=== PATIENT | male | born 1945 | race Two or more races ===

== ENCOUNTER 2020-08-09 13:00 | Outpatient (CLI) | payer MEDICARE, MEDICAID ==
[2020-08-09] MEDS ORDERED: COLLAGENASE 5 GM TUBE UD TP ONE (13:40)
[2020-08-09 14:41] LABS: BASOPHILS % (AUTO) 0.5 % (0.0-2.0); EOSINOPHILS % (AUTO) 2.6 % (0.0-6.0); HEMATOCRIT 41 % (39-51); HEMOGLOBIN 13.5 g/dL (13.5-17.5); LYMPHOCYTES # (AUTO) 1.4 /CMM (0.8-4.8); LYMPHOCYTES % (AUTO) 27.4 % (20.0-44.0); MEAN CORPUSCULAR HGB CONC 33 g/dl (31.0-36.0); MEAN CORPUSCULAR VOLUME 95 fL (80-96); MONOCYTES # (AUTO) 0.5 /CMM (0.1-1.30); MONOCYTES % (AUTO) 9.7 % (2.0-12.0); NEUTROPHILS # (AUTO) 3.1 /CMM (1.8-8.9); NEUTROPHILS % (AUTO) 59.8 % (43.0-81.0); PLATELET COUNT (AUTO) 127 /CMM (150-450); RED BLOOD CELL COUNT(AUTO) 4.28 MIL/uL (4.5-6.0); WHITE BLOOD COUNT (AUTO) 5.2 K/uL (4.3-11.0)
[2020-08-09 14:57] LABS: ALBUMIN 3.8 g/dL (3.4-5.0); CALCIUM, SERUM 9.2 mg/dL (8.5-10.1); CARBON DIOXIDE 29 mmol/L (21-32); CHLORIDE 105 mmol/L (98-107); CREATININE 1.5 mg/dL (0.6-1.3); GLUCOSE 99 mg/dL (74-106); POTASSIUM 4.1 mmol/L (3.5-5.1); SODIUM SERUM 141 mmol/L (136-145); UREA NITROGEN, BLOOD 21 mg/dL (7-18)
== END 2020-08-09 23:59 | disposition home or self-care (01) ==
LOC: WOU 13:00
PROVIDERS: ATTEND Podiatrist Foot & Ankle Surgery
DX: E11.622 Type 2 diabetes mellitus with other skin ulcer (principal); L97.312 Non-pressure chronic ulcer of right ankle with fat layer exposed; L97.321 Non-pressure chronic ulcer of left ankle limited to breakdown of skin; E11.621 Type 2 diabetes mellitus with foot ulcer; L97.412 Non-pressure chronic ulcer of right heel and midfoot with fat layer exposed; E11.51 Type 2 diabetes mellitus with diabetic peripheral angiopathy without gangrene; E11.65 Type 2 diabetes mellitus with hyperglycemia; L84 Corns and callosities; M79.672 Pain in left foot; R60.0 Localized edema
CPT/HCPCS: 36415; 80048; 82040; 83036; 85025; G0463

== ENCOUNTER 2020-08-11 08:07 | Outpatient (CLI) | payer MEDICARE, MEDICAID | END 2020-08-11 23:59 | disposition home or self-care (01) | LOC: CARD 08:07 | PROVIDERS: ATTEND Podiatrist Foot & Ankle Surgery | DX: I70.202 Unspecified atherosclerosis of native arteries of extremities, left leg (principal); E11.621 Type 2 diabetes mellitus with foot ulcer ==

== ENCOUNTER 2020-08-15 11:10 | Outpatient (CLI) | payer MEDICARE, MEDICAID ==
[2020-08-15] MEDS ORDERED: LIDOCAINE SOLN 4% 50 ML BOTTLE ONE (11:18)
[2020-08-15] MEDS ORDERED: COLLAGENASE 5 GM TUBE UD TP ONE (12:19)
== END 2020-08-15 23:59 | disposition home or self-care (01) ==
LOC: WOU 11:10
PROVIDERS: ATTEND Podiatrist Foot & Ankle Surgery
DX: E11.622 Type 2 diabetes mellitus with other skin ulcer (principal); L97.312 Non-pressure chronic ulcer of right ankle with fat layer exposed; E11.621 Type 2 diabetes mellitus with foot ulcer; L97.412 Non-pressure chronic ulcer of right heel and midfoot with fat layer exposed; E11.51 Type 2 diabetes mellitus with diabetic peripheral angiopathy without gangrene; E11.65 Type 2 diabetes mellitus with hyperglycemia; M79.672 Pain in left foot; M79.671 Pain in right foot
CPT/HCPCS: 11042; 82962-TC

== ENCOUNTER 2020-08-17 09:14 | Outpatient (CLI) | payer MEDICARE, MEDICAID ==
[2020-08-17 10:49] LABS: BASOPHILS % (AUTO) 0.5 % (0.0-2.0); EOSINOPHILS % (AUTO) 2.2 % (0.0-6.0); HEMATOCRIT 43 % (39-51); HEMOGLOBIN 14.2 g/dL (13.5-17.5); LYMPHOCYTES # (AUTO) 1.3 /CMM (0.8-4.8); LYMPHOCYTES % (AUTO) 24.8 % (20.0-44.0); MEAN CORPUSCULAR HGB CONC 33 g/dl (31.0-36.0); MEAN CORPUSCULAR VOLUME 95 fL (80-96); MONOCYTES # (AUTO) 0.5 /CMM (0.1-1.30); MONOCYTES % (AUTO) 10.1 % (2.0-12.0); NEUTROPHILS # (AUTO) 3.4 /CMM (1.8-8.9); NEUTROPHILS % (AUTO) 62.4 % (43.0-81.0); PLATELET COUNT (AUTO) 136 /CMM (150-450); RED BLOOD CELL COUNT(AUTO) 4.54 MIL/uL (4.5-6.0); WHITE BLOOD COUNT (AUTO) 5.4 K/uL (4.3-11.0)
[2020-08-17 10:55] LABS: BILIRUBIN,URINE NEGATIVE (NEGATIVE); COLOR,URINE YELLOW (YELLOW); LEUKOCYTE ESTERASE ,URINE NEGATIVE (NEGATIVE); NITRITE, URINE NEGATIVE (NEGATIVE); PROTEIN,URINE 100 mg/dl (NEGATIVE); UGLUCOSE NEGATIVE (NEGATIVE); UROBILINOGEN,URINE 0.2 EU/dL (0.2)
[2020-08-17 11:18] LABS: BACTERIA,URINE None seen /HPF (None Seen); C-REACTIVE PROTEIN 0.2 mg/dL (0.0-0.9); PROSTATE SPECIFIC ANTIGEN SCR 2.27 ng/mL (0.00-4.00); RBC,URINE NONE SEEN /HPF (0-2); SQUAMOUS EPITHELIAL CELL,UR Few /HPF (None Seen); THYROID STIMULATING HORMONE 2.328 uIU/mL (0.358-3.74); WBC,URINE NONE SEEN /HPF (0-3)
[2020-08-17 11:45] LABS: BILIRUBIN,TOTAL 0.6 mg/dL (0.2-1.0); CALCIUM, SERUM 9.5 mg/dL (8.5-10.1); CREATININE 1.2 mg/dL (0.6-1.3); MAGNESIUM 2.1 mg/dL (1.8-2.4); PHOSPHORUS 3.7 mg/dL (2.5-4.9); POTASSIUM 4.4 mmol/L (3.5-5.1); TOTAL PROTEIN, SERUM 8.6 g/dL (6.4-8.2)
[2020-08-17 12:34] LABS: CREATININE, URINE 89.3 MG/DL (30.0-125.0)
[2020-08-18 08:06] LABS: PTH, INTACT 45 pg/mL (15-65)
== END 2020-08-17 23:59 | disposition home or self-care (01) ==
LOC: MSC 09:14
PROVIDERS: ATTEND Internal Medicine
DX: R32 Unspecified urinary incontinence (principal); S91.309D Unspecified open wound, unspecified foot, subsequent encounter; I10 Essential (primary) hypertension; E11.9 Type 2 diabetes mellitus without complications; Z00.00 Encounter for general adult medical examination without abnormal findings
CPT/HCPCS: 36415; 80053; 81001; 82043; 82306; 82570 ×2; 82607; 83036; 83735; 83970; 84100; 84153; 84155; 84439; 84443; 85025; 85652; 86038; 86140; G0463

== ENCOUNTER 2020-08-25 08:05 | Outpatient (CLI) | payer MEDICARE, MEDICAID ==
[2020-08-25] MEDS ORDERED: LIDOCAINE SOLN 4% 50 ML BOTTLE ONE (08:09)
[2020-08-25] MEDS ORDERED: COLLAGENASE 5 GM TUBE UD TP ONE (08:45)
== END 2020-08-25 23:59 | disposition home or self-care (01) ==
LOC: WOU 08:05
PROVIDERS: ATTEND Podiatrist Foot & Ankle Surgery
DX: E11.622 Type 2 diabetes mellitus with other skin ulcer (principal); L97.312 Non-pressure chronic ulcer of right ankle with fat layer exposed; E11.621 Type 2 diabetes mellitus with foot ulcer; L97.412 Non-pressure chronic ulcer of right heel and midfoot with fat layer exposed; E11.65 Type 2 diabetes mellitus with hyperglycemia; E11.51 Type 2 diabetes mellitus with diabetic peripheral angiopathy without gangrene; M25.571 Pain in right ankle and joints of right foot; S86.011A Strain of right Achilles tendon, initial encounter; X58.XXXA Exposure to other specified factors, initial encounter; Y92.89 Other specified places as the place of occurrence of the external cause; R60.0 Localized edema; M79.672 Pain in left foot
CPT/HCPCS: 11042

== ENCOUNTER 2020-09-01 08:05 | Outpatient (CLI) | payer MEDICARE, MEDICAID ==
[2020-09-01] MEDS ORDERED: COLLAGENASE 5 GM TUBE UD TP ONE (08:47)
[2020-09-01] MEDS ORDERED: NITROGLYCERIN 0.4 MG/TAB BOTTLE ONE (10:51)
[2020-09-01] MEDS ORDERED: IOHEXOL-350 100 ML VIAL IV ONE (10:51)
[2020-09-01] MEDS ORDERED: IV NS 0.9% 0 ML IV ONE (10:52)
[2020-09-01] MEDS ORDERED: CT SWABBABLE VALVE TRANS SET 1 EA INFUS.SET MC ONE (10:52)
[2020-09-01] MEDS ORDERED: METOPROLOL TARTRATE INJ 5 MG/5 ML AMPUL ONE (10:52)
== END 2020-09-01 23:59 | disposition home or self-care (01) ==
LOC: WOU 08:05
PROVIDERS: ATTEND Podiatrist Foot & Ankle Surgery
DX: E11.622 Type 2 diabetes mellitus with other skin ulcer (principal); L97.312 Non-pressure chronic ulcer of right ankle with fat layer exposed; E11.621 Type 2 diabetes mellitus with foot ulcer; L97.412 Non-pressure chronic ulcer of right heel and midfoot with fat layer exposed; E11.51 Type 2 diabetes mellitus with diabetic peripheral angiopathy without gangrene; E11.65 Type 2 diabetes mellitus with hyperglycemia; R60.0 Localized edema; M25.571 Pain in right ankle and joints of right foot; M79.672 Pain in left foot; M79.671 Pain in right foot
CPT/HCPCS: 11042; J3490; J7050; Q9967

== ENCOUNTER 2020-09-08 08:10 | Outpatient (CLI) | payer MEDICARE, MEDICAID ==
[2020-09-08] MEDS ORDERED: COLLAGENASE 5 GM TUBE UD TP ONE (09:13)
== END 2020-09-08 23:59 | disposition home or self-care (01) ==
LOC: WOU 08:10
PROVIDERS: ATTEND Podiatrist Foot & Ankle Surgery
DX: E11.621 Type 2 diabetes mellitus with foot ulcer (principal); L97.412 Non-pressure chronic ulcer of right heel and midfoot with fat layer exposed; E11.622 Type 2 diabetes mellitus with other skin ulcer; L97.312 Non-pressure chronic ulcer of right ankle with fat layer exposed; M25.571 Pain in right ankle and joints of right foot; R60.0 Localized edema; M79.672 Pain in left foot
CPT/HCPCS: 11042

== ENCOUNTER 2020-09-13 09:00 | Outpatient (CLI) | payer MEDICARE, MEDICAID ==
[2020-09-13 15:40] LABS: CHOLESTEROL 154 mg/dL (<200); HDL CHOLESTEROL 46 mg/dL (40-60); LDL 93 mg/dL (0-99); TRIGLYCERIDES 59 mg/dL (30-150)
== END 2020-09-13 23:59 | disposition home or self-care (01) ==
LOC: VASLAB 09:00
PROVIDERS: ATTEND Internal Medicine
DX: E11.622 Type 2 diabetes mellitus with other skin ulcer (principal); L97.319 Non-pressure chronic ulcer of right ankle with unspecified severity; E11.51 Type 2 diabetes mellitus with diabetic peripheral angiopathy without gangrene; R07.89 Other chest pain; R06.09 Other forms of dyspnea; I10 Essential (primary) hypertension; F10.21 Alcohol dependence, in remission; M25.571 Pain in right ankle and joints of right foot
CPT/HCPCS: 36415; 80061; G0463

== ENCOUNTER → 2020-09-20 | Outpatient (CLI) | payer MEDICARE, MEDICAID ==
[~2020-09-20] MED LIST: COLLAGENASE 5 GM TUBE UD TP ONE
== END | disposition home health service (06) ==
LOC: WOU 13:00
PROVIDERS: ATTEND Podiatrist Foot & Ankle Surgery
DX: E11.621 Type 2 diabetes mellitus with foot ulcer (principal); L97.412 Non-pressure chronic ulcer of right heel and midfoot with fat layer exposed; E11.622 Type 2 diabetes mellitus with other skin ulcer; L97.312 Non-pressure chronic ulcer of right ankle with fat layer exposed; L03.115 Cellulitis of right lower limb; E11.51 Type 2 diabetes mellitus with diabetic peripheral angiopathy without gangrene; E11.65 Type 2 diabetes mellitus with hyperglycemia; M25.571 Pain in right ankle and joints of right foot; R60.0 Localized edema
CPT/HCPCS: 11042; 87070-TC; 87075-TC; 87186-TC

== ENCOUNTER 2020-10-04 13:05 | Outpatient (CLI) | payer MEDICARE, MEDICAID ==
[2020-10-04] MEDS ORDERED: LIDOCAINE SOLN 4% 50 ML BOTTLE ONE (13:21)
[2020-10-04] MEDS ORDERED: CHOL100062 PO (18:48)
[2020-10-04] MEDS ORDERED: AMOX1TAB16 PO (18:48)
[2020-10-04] MEDS ORDERED: LISI10TA29 PO (18:48)
[2020-10-04] MEDS ORDERED: TAMS-12 PO (18:48)
[2020-10-04] MEDS ORDERED: ASPI-1169 PO (18:48)
[2020-10-04] MEDS ORDERED: AMLO-213 PO (18:48)
== END 2020-10-04 23:59 | disposition home health service (06) ==
LOC: WOU 13:05
PROVIDERS: ATTEND Podiatrist Foot & Ankle Surgery
DX: E11.621 Type 2 diabetes mellitus with foot ulcer (principal); L97.412 Non-pressure chronic ulcer of right heel and midfoot with fat layer exposed; E11.622 Type 2 diabetes mellitus with other skin ulcer; L97.312 Non-pressure chronic ulcer of right ankle with fat layer exposed; E11.51 Type 2 diabetes mellitus with diabetic peripheral angiopathy without gangrene; E11.65 Type 2 diabetes mellitus with hyperglycemia; L03.115 Cellulitis of right lower limb; M25.571 Pain in right ankle and joints of right foot; R60.0 Localized edema; M79.672 Pain in left foot

== ENCOUNTER 2020-10-04 17:15 | Inpatient (IN) | payer MEDICARE, OTHER ==
[~2020-10-04] VITALS: Ht 160 cm; Wt 87.1 kg
[2020-10-04 18:41] LABS: BASOPHILS % (AUTO) 0.7 % (0.0-2.0); EOSINOPHILS % (AUTO) 1.6 % (0.0-6.0); HEMATOCRIT 37 % (39-51); HEMOGLOBIN 12.1 g/dL (13.5-17.5); LYMPHOCYTES # (AUTO) 1.4 /CMM (0.8-4.8); LYMPHOCYTES % (AUTO) 20.7 % (20.0-44.0); MEAN CORPUSCULAR HGB CONC 33 g/dl (31.0-36.0); MEAN CORPUSCULAR VOLUME 96 fL (80-96); MONOCYTES # (AUTO) 0.7 /CMM (0.1-1.30); MONOCYTES % (AUTO) 10.6 % (2.0-12.0); NEUTROPHILS # (AUTO) 4.6 /CMM (1.8-8.9); NEUTROPHILS % (AUTO) 66.4 % (43.0-81.0); PLATELET COUNT (AUTO) 135 /CMM (150-450); RED BLOOD CELL COUNT(AUTO) 3.84 MIL/uL (4.5-6.0); WHITE BLOOD COUNT (AUTO) 6.9 K/uL (4.3-11.0)
[2020-10-04] MEDS ORDERED: LISI10TA29 PO (18:48)
[2020-10-04] MEDS ORDERED: CHOL100062 PO (18:48)
[2020-10-04] MEDS ORDERED: AMLO-213 PO (18:48)
[2020-10-04] MEDS ORDERED: AMOX1TAB16 PO (18:48)
[2020-10-04] MEDS ORDERED: ASPI-1169 PO (18:48)
[2020-10-04] MEDS ORDERED: TAMS-12 PO (18:48)
[2020-10-04 18:55] LABS: CALCIUM, SERUM 9.1 mg/dL (8.5-10.1); CARBON DIOXIDE 26 mmol/L (21-32); CHLORIDE 105 mmol/L (98-107); CREATININE 1.5 mg/dL (0.6-1.3); GLUCOSE 121 mg/dL (74-106); POTASSIUM 4.6 mmol/L (3.5-5.1); SODIUM SERUM 139 mmol/L (136-145); UREA NITROGEN, BLOOD 43 mg/dL (7-18)
--- NOTE | 2020-10-04 18:55 | NUR ---
[facility] TO ER BED 12. AAOX4. NOT IN RESP DISTRESS. AMBULATORY. SENT BY DR. ZAVALA FOR WOUND DEBRIDEMENT ON HIS R FOOT HEEL. NOTED WOUND W/ DRY SCAB ON THE L HEEL 1.5CM X 1.5CM NON DRAINING W/ PAIN 11/16. ALSO NOTED A WOUND ON THE R ACHILLES WITH DRY SCAB NON DRAINING. MD WAS AT THE BEDSIDE FOR EVAL. ORDERS RECEIVED, NOTED AND CARRIED OUT. IV LINE ESTABLSIHED ON R AC 18G, BLOOD DRAAWN AND GIVEN TO SAS SQL DEVELOPER AT BEDSIDE.
[2020-10-04] MEDS ORDERED: IV NS 0.9% 500 ML BAG IV ONE (19:30)
[2020-10-04] MEDS ORDERED: VANCOMYCIN 1 GM in IV D5W 250 ML IV ONE (19:30)
[2020-10-04] MEDS ORDERED: PIPERACILLIN /TAZOBACTAM 3.375 G in IV D5W 50 ML IV ONE (19:30)
[2020-10-04] MEDS ORDERED: HYDROCODONE/APAP 5/325MG TABLET PO ONE (19:30)
[2020-10-04] MEDS ORDERED: PIPERACILLIN /TAZOBACTAM 3.375 G VIAL IV ONE (19:35)
[2020-10-04] MEDS ORDERED: VANCOMYCIN 1 GM VIAL ONE (19:35)
[2020-10-04] MEDS ORDERED: HYDROCODONE/APAP 5/325MG TABLET ONE (19:35)
--- NOTE | 2020-10-04 19:36 | NUR ---
CALL FROM LAB. RAPID COVID NEGATIVE.
[2020-10-04] MEDS ORDERED: ONDANSETRON HCL/PF 4 MG/2 ML VIAL IVP PRN (20:00)
[2020-10-04] MEDS ORDERED: MORPHINE SULFATE INJ 2 MG/ML DISP.SYRIN IV PRN (20:00)
[2020-10-04] MEDS ORDERED: ACETAMINOPHEN 325 MG TABLET PO PRN (20:00)
[2020-10-04] MEDS ORDERED: ZOLPIDEM TARTRATE 5 MG TABLET PO PRN (20:00)
[2020-10-04] MEDS ORDERED: MAGNESIUM HYDROXIDE 30 ML UDC PO PRN (20:00)
[2020-10-04] MEDS ORDERED: MAG HYDROX/AL HYDROX/SIMETH 30 ML UDC PO PRN (20:00)
[2020-10-04] MEDS ORDERED: Z GUARD REMEDY 2 OZ OINT TP PRN (20:00)
--- NOTE | 2020-10-04 20:56 | NUR ---
MS 315-2
--- NOTE | 2020-10-04 22:18 | NUR ---
report given to seb العراقي for janak
--- NOTE | 2020-10-04 22:44 | NUR ---
PT TRANSPORTED TO UNIT ON [address] WITH EMT AT BEDSIDE ON STABLE CONDITION.
[2020-10-04 22:45] VITALS: BP 158/87
[2020-10-05] MEDS ORDERED: PIPERACILLIN /TAZOBACTAM 3.375 G VIAL IV ONE ×2 (00:09→05:50)
[2020-10-05] MEDS: ZOSYN IVPB 3.375 G in IV D5W 50ml IV SCH ×2 (00:12→05:52)
--- NOTE | 2020-10-05 01:18 | NUR ---
MS/TELE/RN RECEIVED PATIENT FROM [facility] AT AROUND 2230, PATIENT WAS AWAKE, ALERT, ORIENTED, COMFORTABLE, NO C/O PAIN, NO DISTRESS NOTED, MADE COMFORTABLE IN BED, ADMISSION DONE PER PROTOCOL, PHYSICAL ASSESSMENT DONE, INFORMED PATIENT ABOUT NOTHING BY MOUTH STATUS, VERBALIZED UNDERSTANDING, TAUGHT THE USE OF CALL LIGHT AND PLACED IT AT BEDSIDE WITHIN REACH, FALL PRECAUTIONS PER PROTOCOL, WILL MONITOR.
--- NOTE | 2020-10-05 06:11 | NUR ---
MS/TELE/RN PATIENT IS AWAKE, COMFORTABLE, NO DISTRESS NOTED, CALL LIGHT IN REACH, ALL NEEDS ATTENDED AT THIS TIME, WILL CONTINUE TO MONITOR.
[2020-10-05 06:25] LABS: BASOPHILS % (AUTO) 0.6 % (0.0-2.0); EOSINOPHILS % (AUTO) 2.5 % (0.0-6.0); HEMATOCRIT 37 % (39-51); HEMOGLOBIN 12.3 g/dL (13.5-17.5); LYMPHOCYTES # (AUTO) 2.1 /CMM (0.8-4.8); LYMPHOCYTES % (AUTO) 34.1 % (20.0-44.0); MEAN CORPUSCULAR HGB CONC 33 g/dl (31.0-36.0); MEAN CORPUSCULAR VOLUME 96 fL (80-96); MONOCYTES # (AUTO) 0.6 /CMM (0.1-1.30); NEUTROPHILS # (AUTO) 3.2 /CMM (1.8-8.9); NEUTROPHILS % (AUTO) 52.8 % (43.0-81.0); PLATELET COUNT (AUTO) 133 /CMM (150-450); RED BLOOD CELL COUNT(AUTO) 3.88 MIL/uL (4.5-6.0); WHITE BLOOD COUNT (AUTO) 6.1 K/uL (4.3-11.0)
[2020-10-05 07:11] LABS: CALCIUM, SERUM 8.9 mg/dL (8.5-10.1); CREATININE 1.1 mg/dL (0.6-1.3); MAGNESIUM 2.3 mg/dL (1.8-2.4); PHOSPHORUS 3.5 mg/dL (2.5-4.9); POTASSIUM 4.1 mmol/L (3.5-5.1)
[2020-10-05 08:00] VITALS: BP 157/76
--- NOTE | 2020-10-05 08:02 | NUR ---
RN-NOTES RECEIVED PATIENT WATCHING TV,IN IN HIS ROOM,NO ACUTE DISTRESS NOTED. IV SITE ON R AC INTACT NO SIGN AND SYMPTOMS OF COMPLICATION NOTED ON THE SITE.
--- NOTE | 2020-10-05 08:26 | NUR ---
PATIENT SITTER PATIENT SITTER CLARIFIED TREATMENT ORDERS FOR PATIENT. ALL DISCUSSED WITH PRIMARY RN. DR CORRIGAN TO BE IN TODAY TO EVAUATE PATIENT.
[2020-10-05] MEDS: ASPIRIN 81 MG TAB.CHEW PO SCH (09:04)
[2020-10-05] MEDS: TAMSULOSIN 0.4 MG CAP.SR.24H PO SCH (09:04)
[2020-10-05] MEDS: CHOLECALCIFEROL 1,000 UNIT TABLET (VIT D3) PO SCH (09:04)
[2020-10-05] MEDS: LISINOPRIL (10MG) 10 MG TABLET PO SCH (09:05)
[2020-10-05] MEDS: AMLODIPINE BESYLATE 10 MG TABLET PO SCH (09:05)
--- NOTE | 2020-10-05 09:30 | NUR ---
RN-NOTES DID WOUND TREATMENT ON RIGHT HEEL AND RIGHT ANKLE.
[2020-10-05] MEDS: HYDROCODONE/APAP 5/325MG TABLET PO PRN (10:45)
[2020-10-05] MEDS: PIPERACILLIN /TAZOBACTAM 3.375 G in IV D5W 50 ML IV SCH ×3 (12:21→23:16)
[2020-10-05 13:01] LABS: BILIRUBIN,URINE NEGATIVE (NEGATIVE); COLOR,URINE YELLOW (YELLOW); LEUKOCYTE ESTERASE ,URINE NEGATIVE (NEGATIVE); NITRITE, URINE NEGATIVE (NEGATIVE); PROTEIN,URINE 30 mg/dl (NEGATIVE); UGLUCOSE NEGATIVE (NEGATIVE); UROBILINOGEN,URINE 0.2 EU/dL (0.2)
[2020-10-05 13:50] LABS: CREATININE, URINE 76.5 MG/DL (30.0-125.0)
[2020-10-05 15:17] LABS: EOSINOPHIL,URINE None Seen
[2020-10-05 15:19] LABS: BACTERIA,URINE None seen /HPF (None Seen); CALCIUM OXALATE CRYSTALS,UR RARE /HPF (None Seen); RBC,URINE 0-2 /HPF (0-2); SQUAMOUS EPITHELIAL CELL,UR 0-2 /HPF (None Seen); WBC,URINE 0-2 /HPF (0-3)
[2020-10-05] MEDS: VANCOMYCIN 1 GM in IV D5W 250ml IV SCH (15:24)
[2020-10-05 16:00] VITALS: BP 132/65
--- NOTE | 2020-10-05 18:37 | NUR ---
RN-NOTES PATIENT LYING IN BED WATCHING TV,NO ACUTE DISTRESS NOTED. DENIES ANY DISCOMFORT OR PAIN AT THIS TIME. IV LINE INTACT ON R AC #18 . ALL NEEDS ATTENDED AND ANTICIPATED. CALL LIGHT WITHIN REACH. WILL ENDORSE TO INCOMING NURSE FOR CONTINUITY OF CARE.
--- NOTE | 2020-10-05 19:15 | NUR ---
MS RN NOTES RECEIVED LYING COMFORTABLY ON BED, SPEAK BANGLADESHI,BREATHING NORMAL,NOT IN ANY FORM OF DISTRESS,RIGHT HEEL DRESSING INTACT AND DRY,SALINE LOCK RIGHT AC INTACT AND PATENT.SEEN BY DR WASHBURN,WITH NEW ORDERS NOTED AND CARRIED OUT.PATIENT INSTRUCTED NOTHING BY MOUTH AFTER MIDNIGHT EXCEPT MEDS,IN PREPARATION FOR MORNING PROCEDURE.WILL OBTAIN CONSENT ORDERED.DENIES DISCOMFORTS AT THE MOMENT,CALL LIGHT IN REACH,NEEDS ANTICIPATED.
[2020-10-05 20:00] VITALS: BP 128/68
--- NOTE | 2020-10-05 20:15 | NUR ---
MS RN NOTES CONSENT OBTAINED VIA TELEPHONE WITH DAUGHTER LAURA,AGREED WITH THE PROCEDURE,WITNESSED BY CHARGE NURSE DAKOTA.
--- NOTE | 2020-10-06 00:30 | NUR ---
MS RN NOTES DUE IV ABX HUNG
[2020-10-06] MEDS: PIPERACILLIN /TAZOBACTAM 3.375 G in IV D5W 50 ML IV SCH ×4 (05:23→23:11)
--- NOTE | 2020-10-06 05:30 | NUR ---
MS RN NOTES DUE IV ABX HUNG
--- NOTE | 2020-10-06 06:30 | NUR ---
MS RN NOTES KEPT NPO,PATIENT WAS TAKEN TO SURGERY BY OR CREW FOR FOOT DEBRIDEMENT.CONSENT ON CHART.
[2020-10-06] MEDS ORDERED: FENTANYL PF 100MCG/2ML AMPUL ONE ×2 (06:46→13:15)
[2020-10-06 06:58] LABS: BASOPHILS % (AUTO) 0.5 % (0.0-2.0); EOSINOPHILS % (AUTO) 2.2 % (0.0-6.0); HEMATOCRIT 36 % (39-51); HEMOGLOBIN 11.9 g/dL (13.5-17.5); LYMPHOCYTES # (AUTO) 1.5 /CMM (0.8-4.8); LYMPHOCYTES % (AUTO) 23.9 % (20.0-44.0); MEAN CORPUSCULAR HGB CONC 34 g/dl (31.0-36.0); MEAN CORPUSCULAR VOLUME 95 fL (80-96); MONOCYTES # (AUTO) 0.6 /CMM (0.1-1.30); MONOCYTES % (AUTO) 8.8 % (2.0-12.0); NEUTROPHILS # (AUTO) 4.2 /CMM (1.8-8.9); NEUTROPHILS % (AUTO) 64.6 % (43.0-81.0); PLATELET COUNT (AUTO) 128 /CMM (150-450); RED BLOOD CELL COUNT(AUTO) 3.75 MIL/uL (4.5-6.0); WHITE BLOOD COUNT (AUTO) 6.5 K/uL (4.3-11.0)
[2020-10-06] MEDS ORDERED: VANCOMYCIN 1 GM VIAL ONE (07:04)
[2020-10-06] MEDS ORDERED: BACITRACIN 50000 UNITS/VIAL ONE (07:04)
[2020-10-06] MEDS ORDERED: LIDOCAINE HCL/MPF 1% 30 ML VIAL IJ ONE ×2 (07:04→13:06)
[2020-10-06] MEDS ORDERED: BUPIVACAINE 0.5 % PF 150 MG/30 ML VIAL ONE (07:04)
[2020-10-06 07:11] LABS: CREATININE 1.2 mg/dL (0.6-1.3); POTASSIUM 4.1 mmol/L (3.5-5.1)
--- NOTE | 2020-10-06 07:29 | NUR ---
WOUND CARE CONSULT: PT OFF UNIT IN O.R. AT THIS TIME. PT FOLLOWED BY MOTION DESIGNER FOR FOOT WOUND. DEFER TO PODIATRY TEAM FOR WOUND TREATMENT PLAN. WILL SEE PRN.
--- NOTE | 2020-10-06 07:33 | NUR ---
MS RN OPENING NOTE PATIENT CURRENTLY IN OR FOR SURGERY.
[2020-10-06] MEDS ORDERED: BACITRACIN ZINC OINT (15 GM) 15 GM TUBE TP ONE (07:37)
[2020-10-06 08:50] VITALS: BP 137/70
--- NOTE | 2020-10-06 09:01 | NUR ---
MS RN NOTE PATIENT ARRIVED BACK TO FLOOR FROM RECOVERY. VITALS STABLE 137/70 HR 70 TEMP 97.5 ON OXYGEN, 2LPM VIA NASAL CANNULA. KEPT NPO FOR NOON PROCEDURE. CALL LIGHT WITHIN REACH. WILL CONTINUE TO MONITOR.
[2020-10-06] MEDS: CHOLECALCIFEROL 1,000 UNIT TABLET (VIT D3) PO SCH (09:09)
[2020-10-06] MEDS: ASPIRIN 81 MG TAB.CHEW PO SCH (09:09)
[2020-10-06] MEDS: TAMSULOSIN 0.4 MG CAP.SR.24H PO SCH (09:09)
[2020-10-06] MEDS: LISINOPRIL (10MG) 10 MG TABLET PO SCH (09:10)
[2020-10-06] MEDS: AMLODIPINE BESYLATE 10 MG TABLET PO SCH (09:12)
--- NOTE | 2020-10-06 09:13 | NUR ---
MS RN NOTE PULLED MEDICATION OUT OF THE WRONG BIN IN [facility]. RETURNED IT TO [employer] AND TOOK OUT NORVASC 10MG. DID NOT PULL TWO OF THE SAME MEDICATION - ONLY ONE WAS PULLED.
[2020-10-06] MEDS: VANCOMYCIN 1 GM in IV D5W 250ml IV SCH (09:15)
[2020-10-06] MEDS ORDERED: IV NS 0.9% 1,000 ML ONE (12:02)
[2020-10-06] MEDS ORDERED: IODIXANOL 150 ML IV ONE (12:03)
[2020-10-06] MEDS ORDERED: IV SET PRIMARY PUMP SET 1 EA INFUS.SET MC ONE (12:03)
--- NOTE | 2020-10-06 12:22 | NUR ---
MS RN NOTE PATIENT TAKEN DOWN TO SANDWICH ARTIST FOR PROCEDURE.
[2020-10-06] MEDS ORDERED: IODIXANOL 320MG/ML 50 ML IV ONE (13:40)
[2020-10-06] MEDS ORDERED: HEPARIN SODIUM, PORCINE 1,000 UNIT/ML VIAL ONE (13:42)
[2020-10-06] MEDS ORDERED: HEPARIN SODIUM, PORCINE 5000 UNITS/1 ML VIAL ONE (13:42)
[2020-10-06] MEDS ORDERED: IODIXANOL 320MG/ML 100 ML IV ONE (14:01)
[2020-10-06] MEDS ORDERED: NITROGLYCERIN ICAR 1,000 MCG/10 ML VIAL ICAR ONE (14:07)
[2020-10-06] MEDS ORDERED: CLOPIDOGREL BISULFATE 300 MG TABLET ONE (14:11)
[2020-10-06] MEDS ORDERED: ONDANSETRON HCL/PF 4 MG/2 ML VIAL ONE (14:36)
--- NOTE | 2020-10-06 14:53 | NUR ---
MS RN NOTE PATIENT RETURNED FROM SAFETY AIDE @ 0167. ORDERS TO LAY FLAT FOR 2 HOURS, AND TO NOT MOVE THE LEFT LEG FOR 2 HOURS. DRESSING DRY AND INTACT.
[2020-10-06 16:00] VITALS: BP 122/83
--- NOTE | 2020-10-06 16:19 | NUR ---
Strategic Marketing Associate: student services rep follow up with patient to discuss IHSS application. Patient stated that he did not require assistance at this time and that his daughter is able to assist him with the application. No further SS intervention needed at this time, however SS will be available as needed.
--- NOTE | 2020-10-06 18:28 | NUR ---
MS RN CLOSING NOTE PATIENT CURRENTLY LYING IN BED, AWAKE, WATCHING TV. STATUS POST RIGHT FOOT DEBRIDEMENT & ABDOMINAL ANGIOGRAM. A/O X4. [place] SPEAKING ONLY. PATIENT ON ROOM AIR - TOLERATING WELL. NO SOB NOTED. NO DISTRESS NOTED. NO PAIN NOTED AT THIS TIME. PATIENT AWARE HE HAS PAIN MEDICATION IF NEEDED. IV ACCESS TO RIGHT AC #18 - INTACT AND PATENT. SAFETY PRECAUTIONS IMPLEMENTED. BED IN LOWEST, LOCKED POSITION. SIDE RAILS X3. CALL LIGHT WITHIN REACH. WILL ENDORSE TO GLIDING PILOT INSTRUCTOR NURSE FOR RONNIE.
--- NOTE | 2020-10-06 19:42 | NUR ---
MS RN OPENING NOTE PATIENT A/OX4; ABLE TO MAKE NEEDS KNOWN. ON ROOM AIR; TOLERATING WELL WITH NO SOB. S/P WOUND DEBRIDEMENT TODAY. DRESSING ON RIGHT FOOT; KEPT C/D/I. RAC #18G; PATENT AND INTACT. L HAND #20G; PATENT AND INTACT. DENIES PAIN OR DISCOMFORT AT THIS TIME. SAFETY MEASURES IN PLACE: BED IN LOWEST LOCKED POSITION, BED ALARMS ON, CALL LIGHT WITHIN EASY REACH. PATIENT IS STABLE AT THIS TIME; WILL CONTINUE PLAN OF CARE.
[2020-10-06 20:00] VITALS: BP 139/69
[2020-10-06] MEDS: HYDROCODONE/APAP 5/325MG TABLET PO PRN (23:50)
--- NOTE | 2020-10-06 23:50 | NUR ---
MS RN NOTE - PAIN PATIENT C/O 5/10 PAIN ON RIGHT FOOT. ADMINISTERED NORCO ORDERED. WILL CONTINUE TO REASSESS FOR PAIN IN 1 HOUR.
[2020-10-07] MEDS: VANCOMYCIN 1 GM in IV D5W 250ml IV SCH ×2 (02:08→20:42)
[2020-10-07] MEDS: PIPERACILLIN /TAZOBACTAM 3.375 G in IV D5W 50 ML IV SCH ×3 (05:17→17:32)
--- NOTE | 2020-10-07 06:27 | NUR ---
MS RN CLOSING NOTE PATIENT A/OX4; ABLE TO MAKE NEEDS KNOWN. ON ROOM AIR; TOLERATING WELL WITH NO SOB. DRESSING ON RIGHT FOOT; KEPT C/D/I. RAC #18G; PATENT AND INTACT. L HAND #20G; PATENT AND INTACT. DENIES PAIN OR DISCOMFORT AT THIS TIME. SAFETY MEASURES IN PLACE: BED IN LOWEST LOCKED POSITION, BED ALARMS ON, CALL LIGHT WITHIN EASY REACH. PATIENT IS STABLE AT THIS TIME; WILL ENDORSE PLAN OF CARE TO ONCOMING MORNING RN.
[2020-10-07 06:41] LABS: BASOPHILS % (AUTO) 0.5 % (0.0-2.0); EOSINOPHILS % (AUTO) 1.6 % (0.0-6.0); HEMATOCRIT 36 % (39-51); HEMOGLOBIN 11.9 g/dL (13.5-17.5); LYMPHOCYTES # (AUTO) 1.5 /CMM (0.8-4.8); LYMPHOCYTES % (AUTO) 23.1 % (20.0-44.0); MEAN CORPUSCULAR HGB CONC 33 g/dl (31.0-36.0); MEAN CORPUSCULAR VOLUME 96 fL (80-96); MONOCYTES # (AUTO) 0.6 /CMM (0.1-1.30); MONOCYTES % (AUTO) 8.9 % (2.0-12.0); NEUTROPHILS # (AUTO) 4.2 /CMM (1.8-8.9); NEUTROPHILS % (AUTO) 65.9 % (43.0-81.0); PLATELET COUNT (AUTO) 122 /CMM (150-450); RED BLOOD CELL COUNT(AUTO) 3.79 MIL/uL (4.5-6.0); WHITE BLOOD COUNT (AUTO) 6.3 K/uL (4.3-11.0)
[2020-10-07 07:00] LABS: CALCIUM, SERUM 8.5 mg/dL (8.5-10.1); CREATININE 1.3 mg/dL (0.6-1.3); POTASSIUM 4.3 mmol/L (3.5-5.1)
--- NOTE | 2020-10-07 07:02 | NUR ---
MS RN OPENING NOTES RECEIVED PT AWAKE IN BED AT THIS TIME. AOX4. [place] CITIZEN SPEAKING. NO SOB NOTED, NO S/O ANY ACUTE DISTRESS AT THIS TIME, NO C/O OF PAIN. PT STABLE ON RA. RESPIRATIONS EVEN AND UNLABORED. IV ACCESS IN RAC G#18 AND LEFT HAND G#20. BOTH INTACT, PATENT AND FLUSHING WELL. SAFETY PRECAUTIONS IN PLACE AND MAINTAINED AT ALL TIMES. BED IN LOWEST LOCKED POSITION, HOB ELEVATED, SIDE RAILS UP X 2. CALL LIGHT AND TABLE WITHIN REACH. WILL CONTINUE TO MONITOR
[2020-10-07 08:00] VITALS: BP 135/65
[2020-10-07] MEDS ORDERED: AMLODIPINE BESYLATE 10 MG TABLET ONE (08:27)
[2020-10-07] MEDS: TAMSULOSIN 0.4 MG CAP.SR.24H PO SCH (08:34)
[2020-10-07] MEDS: ASPIRIN 81 MG TAB.CHEW PO SCH (08:35)
[2020-10-07] MEDS: AMLODIPINE BESYLATE 10 MG TABLET PO SCH (08:35)
[2020-10-07] MEDS: CHOLECALCIFEROL 1,000 UNIT TABLET (VIT D3) PO SCH (08:35)
[2020-10-07] MEDS: LISINOPRIL (10MG) 10 MG TABLET PO SCH (08:36)
[2020-10-07] MEDS: HYDROCODONE/APAP 5/325MG TABLET PO PRN (08:36)
--- NOTE | 2020-10-07 08:36 | NUR ---
PT C/O OF ACHING RIGHT FOOD PAIN. PT NOTED GRIMACING. VS BP 135/65, HR 88, RR 18, T 98.5, SPO2 97. PER PT REQUEST, NORCO 5-325MG PO Q4HR ADMINISTERED AT THIS TIME. WILL CONTINUE WITH PLAN OF CARE
[2020-10-07 16:00] VITALS: BP 139/78
--- NOTE | 2020-10-07 16:27 | NUR ---
MS VIVEROSEPIC CUPID ANALYST NOTES PT DISCHARGE TO HOME AT THIS TIME. PT MEDICALLY STABLE AND CLEARED FOR DISCHARGE BY ISHAAN ALBERTO. ALL DISCHARGE INSTRUCTIONS PROVIDED. PT VERBALIZED UNDERSTANDING. ALL CARE, NEEDS, TREATMENT AND MEDICATIONS ADMINISTERED ANTICIPATED PER ORDER. ALL BELONGINGS ACCOUNTED FOR, SIGNED BY PT AND WITH PT. ID BAND REMOVED. IV ACCESS REMOVED, PRESSURE APPLIED, SECURED WITH GAUZE AND TAPE. NO S/O BLEEDING OR INFILTRATION NOTED. PT TRANSPORTED BY WHEEL CHAIR OUT OF UNIT IN STABLE CONDITION BY ENDY SUBRAMANIAN DIANE, CHARGE NURSE AND ISHAAN ALBERTO, AWARE. Addendum: 10/07/20 at 1630 by CHELSEA MERINO RN NOTES NOT MEANT FOR THIS PT. PLS DISREGARD
--- NOTE | 2020-10-07 19:12 | NUR ---
MS RN CLOSING NOTES PT AWAKE IN BED AT THIS TIME WATCHING TV. PT REMAINED STABLE THROUGHOUT SHIFT. ALL CARE, NEEDS, TREATMENT AND MEDICATIONS ADMINISTERED ANTICIPATED PER ORDER. PT KEPT CLEAN AND DRY. PAIN MANAGEMENT ADMINISTERED PER ORDER. ASPIRATION AND SAFETY PRECAUTIONS IN PLACE AND MAINTAINED AT ALL TIMES. BED IN LOWEST LOCKED POSITION, HOB ELEVATED, SIDE RAILS UP X 2. CALL LIGHT AND TABLE WITHIN REACH. WILL CONTINUE TO MONITOR
--- NOTE | 2020-10-07 19:15 | NUR ---
MS RN OPENING NOTE PATIENT IN BED WITH EYES CLOSED, EASILY AROUSED. BREATHING EVEN AND UNLABORED. NO C/O PAIN OR DISCOMFORT AT THIS TIME. IV ACCESS INTACT. PATIENT ABLE TO MAKE NEEDS KNOWN, A/O X 4. DRESSING ON THE RIGHT FOOT WOUND CLEAN, DRY, AND INTACT. SAFETY MEASURES IN PLACE: SIDE RAILS UP, BED IN LOCKED AND LOWEST POSITION, CALL LIGHT WITHIN REACH, HOB ELEVATED. WILL MONITOR PATIENT CLOSELY DURING THE SHIFT.
[2020-10-07 20:00] VITALS: BP 140/80
[2020-10-08] MEDS: PIPERACILLIN /TAZOBACTAM 3.375 G in IV D5W 50 ML IV SCH ×3 (00:12→11:14)
[2020-10-08 06:23] LABS: BASOPHILS % (AUTO) 0.4 % (0.0-2.0); EOSINOPHILS % (AUTO) 2.3 % (0.0-6.0); HEMATOCRIT 35 % (39-51); LYMPHOCYTES # (AUTO) 1.3 /CMM (0.8-4.8); LYMPHOCYTES % (AUTO) 20.1 % (20.0-44.0); MEAN CORPUSCULAR HGB CONC 34 g/dl (31.0-36.0); MEAN CORPUSCULAR VOLUME 95 fL (80-96); MONOCYTES # (AUTO) 0.6 /CMM (0.1-1.30); MONOCYTES % (AUTO) 9.9 % (2.0-12.0); NEUTROPHILS # (AUTO) 4.4 /CMM (1.8-8.9); NEUTROPHILS % (AUTO) 67.3 % (43.0-81.0); PLATELET COUNT (AUTO) 126 /CMM (150-450); RED BLOOD CELL COUNT(AUTO) 3.71 MIL/uL (4.5-6.0); WHITE BLOOD COUNT (AUTO) 6.5 K/uL (4.3-11.0)
[2020-10-08 06:44] LABS: CALCIUM, SERUM 9.2 mg/dL (8.5-10.1); CREATININE 1.2 mg/dL (0.6-1.3); POTASSIUM 4.3 mmol/L (3.5-5.1)
--- NOTE | 2020-10-08 06:58 | NUR ---
MS RN CLOSING NOTE PATIENT IN BED RESTING, EASILY AROUSED. A/O X 4. BREATHING EVEN AND UNLABORED. COMPLAINS OF MILD LEG/FOOT PAIN, OFFERED PAIN MEDICINE, REFUSED. IV ACCESS ON LEFT HAND AND R AC INTACT. DRESSING ON THE RIGHT FOOT WOUND STILL CLEAN, DRY, AND INTACT. SAFETY MEASURES MAINTAINED DURING THE SHIFT: SIDE RAILS UP, BED IN LOCKED AND LOWEST POSITION, CALL LIGHT WITHIN REACH, HOB ELEVATED. ALL NEEDS MET AND ATTENDED. ALL ORDERS CARRIED OUT. WILL ENDORSE TO DAY SHIFT NURSE FOR RONNIE.
--- NOTE | 2020-10-08 07:25 | NUR ---
MS RN OPENING NOTE RECEIVED PATIENT IN BED. A/O X4. [place] SPEAKING. ON ROOM AIR, TOLERATING WELL. NO SOB NOTED. IN NO APPARENT DISTRESS. DENIES ANY PAIN OR DISCOMFORT AT THIS TIME. IV ACCESS ON R AC #18 G AND L HAND #20 G, INTACT. R LEG DRESSING C/D/I. SAFETY MEASURES MAINTAINED. BED IN LOWEST POSITION, BRAKES LOCKED. SIDE RAILS UP X2. CALL LIGHT WITHIN REACH. WILL CONTINUE PLAN OF CARE.
[2020-10-08] MEDS: CHOLECALCIFEROL 1,000 UNIT TABLET (VIT D3) PO SCH (08:19)
[2020-10-08] MEDS: ASPIRIN 81 MG TAB.CHEW PO SCH (08:19)
[2020-10-08] MEDS: TAMSULOSIN 0.4 MG CAP.SR.24H PO SCH (08:20)
[2020-10-08] MEDS: LISINOPRIL (10MG) 10 MG TABLET PO SCH (08:20)
[2020-10-08] MEDS: AMLODIPINE BESYLATE 10 MG TABLET PO SCH (08:20)
[2020-10-08 08:21] VITALS: BP 161/78
[2020-10-08] MEDS: CEFTRIAXONE 1 G in IV D5W 50 ML IV SCH (13:38)
[2020-10-08 16:02] VITALS: BP 114/73
[2020-10-08] MEDS: MINERAL OIL/PETROLATUM,WHITE 120 GM JAR TP SCH (16:41)
[2020-10-08] MEDS: GENTAMICIN 0.1% OINT 15 GM TUBE TP SCH (16:41)
--- NOTE | 2020-10-08 18:12 | NUR ---
MS RN CLOSING NOTE PATIENT RESTING IN BED. A/O X4. ON ROOM AIR, SATURATING WELL AT 96%. NO SOB NOTED. SHOWS NO SIGNS OF RESPIRATORY DISTRESS. NO REPORTS OF PAIN OR DISCOMFORT AT THIS TIME. IV ACCESS ON R AC #18 G AND L HAND #20 G, SCOTTIE MIDLINE #18, INTACT AND PATENT. R LEG DRESSING C/D/I. WOUND TREATMENT ORDERED. ROUTINE MEDS WERE GIVEN ORDERED. ALL NEEDS HAVE BEEN MET AND ATTENDED. SAFETY MEASURES MAINTAINED. BED IN LOWEST POSITION, BRAKES LOCKED. SIDE RAILS UP X2. CALL LIGHT WITHIN REACH. WILL ENDORSE CONTINUITY OF CARE TO ONCOMING SHIFT.
--- NOTE | 2020-10-08 19:15 | NUR ---
MS RN OPENING NOTE PATIENT IN BED WITH EYES CLOSED, EASILY AROUSED. PATIENT IS [place] SPEAKING, A/ O X 4. DRESSING ON THE RIGHT FOOT WOUND DRY, CLEAN, AND INTACT. SCOTTIE MIDLINE ACCESS FLUSHING WELL WELL IV ACCESS ON L AC AND R HAND. PATIENT TOLERATING ROOM AIR, BREATHING EVEN AND UNLABORED. NO S/S OF RESPIRATORY DISTRESS. SAFETY MEASURES IN PLACE: CALL LIGHT WITHIN REACH, BED IN LOCKED AND LOWEST POSITION, SIDE RAILS UP, BED ALARM ON. WILL MONITOR PATIENT CLOSELY.
[2020-10-08 20:00] VITALS: BP 135/65
[2020-10-09 06:29] LABS: BASOPHILS % (AUTO) 0.4 % (0.0-2.0); EOSINOPHILS % (AUTO) 1.8 % (0.0-6.0); HEMATOCRIT 37 % (39-51); HEMOGLOBIN 12.6 g/dL (13.5-17.5); LYMPHOCYTES # (AUTO) 1.4 /CMM (0.8-4.8); LYMPHOCYTES % (AUTO) 22.4 % (20.0-44.0); MEAN CORPUSCULAR HGB CONC 34 g/dl (31.0-36.0); MEAN CORPUSCULAR VOLUME 95 fL (80-96); MONOCYTES # (AUTO) 0.5 /CMM (0.1-1.30); MONOCYTES % (AUTO) 8.1 % (2.0-12.0); NEUTROPHILS # (AUTO) 4.1 /CMM (1.8-8.9); NEUTROPHILS % (AUTO) 67.3 % (43.0-81.0); PLATELET COUNT (AUTO) 148 /CMM (150-450); RED BLOOD CELL COUNT(AUTO) 3.96 MIL/uL (4.5-6.0); WHITE BLOOD COUNT (AUTO) 6.1 K/uL (4.3-11.0)
[2020-10-09 06:55] LABS: CALCIUM, SERUM 9.5 mg/dL (8.5-10.1); CREATININE 1.1 mg/dL (0.6-1.3); POTASSIUM 4.4 mmol/L (3.5-5.1)
--- NOTE | 2020-10-09 06:59 | NUR ---
MS RN CLOSING NOTE PATIENT IN BED WITH EYES CLOSED, EASILY AWAKEN. BREATHING EVEN AND UNLABORED. NO COMPLAINS OF PAIN OR DISCOMFORT AT THIS TIME. ALL IV ACCESS PATENT AND INTACT. DRESSING ON THE RIGHT FOOT WOUND STILL CLEAN, DRY, AND INTACT. SAFETY MEASURES MAINTAINED DURING THE SHIFT: SIDE RAILS UP, BED IN LOCKED AND LOWEST POSITION, CALL LIGHT WITHIN REACH, HOB ELEVATED. ALL NEEDS MET AND ATTENDED. ALL ORDERS CARRIED OUT. WILL ENDORSE TO DAY SHIFT NURSE FOR RONNIE.
--- NOTE | 2020-10-09 07:25 | NUR ---
MS RN OPENING NOTE RECEIVED PATIENT IN BED. A/O X4. THAI SPEAKING. ON ROOM AIR, TOLERATING WELL. NO SOB NOTED. NO S/S OF RESPIRATORY DISTRESS. DENIES ANY PAIN OR DISCOMFORT AT THIS TIME. IV ACCESS ON R AC #18 G, L HAND #20 G AND SCOTTIE MIDLINE #18 G, ALL INTACT. R LEG DRESSING C/D/I. SAFETY MEASURES MAINTAINED. BED IN LOWEST POSITION, BRAKES LOCKED. SIDE RAILS UP X2. CALL LIGHT WITHIN REACH. WILL CONTINUE PLAN OF CARE.
[2020-10-09 08:00] VITALS: BP 150/79
[2020-10-09] MEDS: TAMSULOSIN 0.4 MG CAP.SR.24H PO SCH (08:11)
[2020-10-09] MEDS: CHOLECALCIFEROL 1,000 UNIT TABLET (VIT D3) PO SCH (08:11)
[2020-10-09] MEDS: GENTAMICIN 0.1% OINT 15 GM TUBE TP SCH ×2 (08:12→17:06)
[2020-10-09] MEDS: MINERAL OIL/PETROLATUM,WHITE 120 GM JAR TP SCH ×2 (08:12→17:05)
[2020-10-09] MEDS: LISINOPRIL (10MG) 10 MG TABLET PO SCH (08:12)
[2020-10-09] MEDS: AMLODIPINE BESYLATE 10 MG TABLET PO SCH (08:12)
[2020-10-09] MEDS: ASPIRIN 81 MG TAB.CHEW PO SCH (08:12)
[2020-10-09] MEDS: CEFTRIAXONE 1 G in IV D5W 50 ML IV SCH (14:20)
[2020-10-09 16:00] VITALS: BP 141/76
--- NOTE | 2020-10-09 18:12 | NUR ---
MS RN CLOSING NOTE PATIENT RESTING IN BED. A/O X4. ON ROOM AIR, SATURATING WELL AT 97%. NO SOB NOTED. SHOWS NO SIGNS OF RESPIRATORY DISTRESS. NO REPORTS OF PAIN OR DISCOMFORT AT THIS TIME. IV ACCESS ON R AC #18 G AND L HAND #20 G, SCOTTIE MIDLINE #18, INTACT AND PATENT. R LEG DRESSING C/D/I. WOUND TREATMENT ORDERED. ROUTINE MEDS WERE GIVEN ORDERED. ABLE TO MAKE NEEDS KNOWN. OBTAINED CONSENT FROM THE PT AND WILL KEEP HIM ON NPO EXCEPT MEDS AT 1200 MIDNIGHT. INFORMED THE PT WELL. SAFETY MEASURES MAINTAINED. BED IN LOWEST POSITION, BRAKES LOCKED. SIDE RAILS UP X2. CALL LIGHT WITHIN REACH. WILL ENDORSE CONTINUITY OF CARE TO ONCOMING SHIFT.
[2020-10-09 20:00] VITALS: BP 133/60
--- NOTE | 2020-10-09 22:15 | NUR ---
report from vzaquez grigsby. will continue care.
[2020-10-10 06:19] LABS: BASOPHILS % (AUTO) 0.5 % (0.0-2.0); EOSINOPHILS % (AUTO) 1.8 % (0.0-6.0); HEMATOCRIT 35 % (39-51); HEMOGLOBIN 11.8 g/dL (13.5-17.5); LYMPHOCYTES # (AUTO) 1.8 /CMM (0.8-4.8); LYMPHOCYTES % (AUTO) 28.3 % (20.0-44.0); MEAN CORPUSCULAR HGB CONC 33 g/dl (31.0-36.0); MEAN CORPUSCULAR VOLUME 95 fL (80-96); MONOCYTES # (AUTO) 0.6 /CMM (0.1-1.30); NEUTROPHILS # (AUTO) 3.9 /CMM (1.8-8.9); NEUTROPHILS % (AUTO) 59.4 % (43.0-81.0); PLATELET COUNT (AUTO) 149 /CMM (150-450); WHITE BLOOD COUNT (AUTO) 6.5 K/uL (4.3-11.0)
--- NOTE | 2020-10-10 06:45 | NUR ---
patient picked up and taken down to or.
[2020-10-10] MEDS ORDERED: LIDOCAINE HCL/MPF 1% 30 ML VIAL IJ ONE (07:11)
[2020-10-10] MEDS ORDERED: BUPIVACAINE 0.5 % PF 150 MG/30 ML VIAL ONE (07:11)
[2020-10-10] MEDS ORDERED: BACITRACIN 50000 UNITS/VIAL ONE (07:11)
[2020-10-10] MEDS ORDERED: ANESTHESIA TRAY IN PYXIS 1 EA TRAY MC ONE (07:11)
--- NOTE | 2020-10-10 07:15 | NUR ---
MS RN NOTES PATIENT OUT OF THE UNIT FOR SURGERY.
[2020-10-10] MEDS ORDERED: FENTANYL PF 100MCG/2ML AMPUL ONE (07:16)
[2020-10-10 07:45] LABS: CALCIUM, SERUM 9.4 mg/dL (8.5-10.1); CREATININE 1.3 mg/dL (0.6-1.3); POTASSIUM 5.2 mmol/L (3.5-5.1)
[2020-10-10 09:05] VITALS: BP 140/73
--- NOTE | 2020-10-10 09:05 | NUR ---
MS RN NOTES PATIENT CAME BACK FROM OPERATING ROOM IN WITH STABLE VITAL SIGNS. ALERT ORIENTED X 4. NO ACUTE DISTRESS NOTED. BREATHING UNLABORED. DENIED PAIN AT THIS TIME.RIGHT LOWER EXTREMITY WITH SURGICAL DRESSING COVERED WITH PRASHANTH WRAP , CLEAN DRY AND INTACT. PATIENT ABLE TO WIGGLE TOES, WITH GOOD CIRCULATION. RIGHT LOWER EXTREMITY ELEVATED WITH 2 PILLOWS. IV ACCESS PATENT AND INTACT, NO REDNESS NO SWELLING NOTED. VITAL SIGNS STABLE.WITH NEW ORDER RECEIVED FROM DOCTOR CORRIGAN, NOTED AND CARRIED OUT. WILL CONTINUE TO MONITOR PATIENT.
[2020-10-10 09:20] VITALS: BP 140/70
[2020-10-10 09:30] VITALS: BP 143/73
[2020-10-10] MEDS: MINERAL OIL/PETROLATUM,WHITE 120 GM JAR TP SCH ×2 (09:30→17:00)
[2020-10-10] MEDS: GENTAMICIN 0.1% OINT 15 GM TUBE TP SCH ×2 (09:30→17:00)
--- NOTE | 2020-10-10 09:30 | NUR ---
NON-ADMINISTERED EUCERIN LOTION AND GENTAMYCIN OINTMENT, PATIENT S/P LE SURGERY WITH DRESSING UNABLE TO OPEN PER MD TO KEEP INTACT.
[2020-10-10 09:35] VITALS: BP 142/74
[2020-10-10] MEDS ORDERED: CEFT1FRO2 IV (09:40)
[2020-10-10] MEDS: TAMSULOSIN 0.4 MG CAP.SR.24H PO SCH (09:43)
[2020-10-10] MEDS: LISINOPRIL (10MG) 10 MG TABLET PO SCH (09:43)
[2020-10-10] MEDS: AMLODIPINE BESYLATE 10 MG TABLET PO SCH (09:43)
[2020-10-10] MEDS: CHOLECALCIFEROL 1,000 UNIT TABLET (VIT D3) PO SCH (09:44)
[2020-10-10] MEDS: ASPIRIN 81 MG TAB.CHEW PO SCH (09:47)
[2020-10-10 09:50] VITALS: BP 143/70
--- NOTE | 2020-10-10 10:05 | NUR ---
PATIENT ALERT AND ORIENTED X 4. VS STABLE. NO SIGNS AND SYMPTOMS OF DISTRESS. NO COMPLAINTS OF PAIN. SURGICAL WOUND DRESSING IS CLEAN, DRY AND INTACT. NO BLEEDING NOTED.
[2020-10-10] MEDS: CEFTRIAXONE 1 G in IV D5W 50 ML IV SCH (14:17)
[2020-10-10 16:00] VITALS: BP 127/63
--- NOTE | 2020-10-10 17:05 | NUR ---
NON-ADMINISTERED EUCERIN LOTION AND GENTAMYCIN OINTMENT, PATIENT S/P LE SURGERY WITH DRESSING UNABLE TO OPEN PER MD TO KEEP INTACT.
--- NOTE | 2020-10-10 19:08 | NUR ---
MS TRAINING CONSULTANT NOTES PATIENT DISCHARGE HOME WITH STABLE VITAL SIGNS. PATIENT ALERT ORIENTED X 4. NO ACUTE DISTRESS NOTED . BREATHING UNLABORED. DENIED ANY PAIN. DISCHARGE INSTRUCTIONS GIVEN TO THE PATIENT, INCLUDING FOLLOW UP WITH PRIMARY DOCTOR IN 1-[address] CORRIGAN IN [address] CORRIGAN TO DO FIRST DRESSING CHANGE DURING FOLLOW UP VISIT,AND TO KEEP RIGHT LOWER LEG SURGICAL DRESSING CLEAN , DRY AND INTACT, ELEVATE RIGHT LOWER EXTREMITY ELEVATED WITH 2-3 PILLOWS, VERBALIZED UNDERSTANDING. ALL BELONGINGS ACCOUNTED FOR. RIGHT UPPER ARM MIDLINE PATENT AND INTACT,SECURED WITH TRANSPARENT DRESSING , NO REDNESS, NO BLEEDING , NO SWELLING NOTED. ASSISTED TO THE LOBBY , PICKED UP VIA PRIVATE CAR ACCOMPANIED BY DAUGHTER LAURA IN STABLE CONDITION.
== END 2020-10-10 19:36 | disposition home health service (06) | DRG 252 ==
LOC: ER 17:15 → MED 20:59
PROVIDERS: ADMIT Nurse Practitioner Acute Care; ATTEND Nurse Practitioner Acute Care
PROC: 047P3ZZ Dilation of Right Anterior Tibial Artery, Percutaneous Approach (ICD-10-PCS; 2020-10-04)
PROC: 0JBQ0ZZ Excision of Right Foot Subcutaneous Tissue and Fascia, Open Approach (ICD-10-PCS; 2020-10-06)
PROC: B40GYZZ Plain Radiography of Left Lower Extremity Arteries using Other Contrast (ICD-10-PCS; 2020-10-06)
PROC: 05H933Z Insertion of Infusion Device into Right Brachial Vein, Percutaneous Approach (ICD-10-PCS; principal; 2020-10-08)
PROC: 0JBQ0ZZ Excision of Right Foot Subcutaneous Tissue and Fascia, Open Approach (ICD-10-PCS; 2020-10-10)
PROC: 0HRMXK3 Replacement of Right Foot Skin with Nonautologous Tissue Substitute, Full Thickness, External Approach (ICD-10-PCS; 2020-10-10)
DX: E11.52 Type 2 diabetes mellitus with diabetic peripheral angiopathy with gangrene (principal); N17.0 Acute kidney failure with tubular necrosis; L03.115 Cellulitis of right lower limb; L97.819 Non-pressure chronic ulcer of other part of right lower leg with unspecified severity; D68.59 Other primary thrombophilia; N13.8 Other obstructive and reflux uropathy; L97.319 Non-pressure chronic ulcer of right ankle with unspecified severity; E11.622 Type 2 diabetes mellitus with other skin ulcer; E78.5 Hyperlipidemia, unspecified; I25.10 Atherosclerotic heart disease of native coronary artery without angina pectoris; N40.0 Benign prostatic hyperplasia without lower urinary tract symptoms; Z68.34 Body mass index [BMI] 34.0-34.9, adult; E66.9 Obesity, unspecified; E11.621 Type 2 diabetes mellitus with foot ulcer; I10 Essential (primary) hypertension; Z79.82 Long term (current) use of aspirin; Z79.899 Other long term (current) drug therapy; N40.1 Benign prostatic hyperplasia with lower urinary tract symptoms; T46.4X5A Adverse effect of angiotensin-converting-enzyme inhibitors, initial encounter; Y92.009 Unspecified place in unspecified non-institutional (private) residence as the place of occurrence of the external cause; Z79.4 Long term (current) use of insulin; Z74.09 Other reduced mobility; Z20.822 Contact with and (suspected) exposure to COVID-19
CPT/HCPCS: 11042; 36415; 71045-TC; 73590-TC; 73630-TC; 75630-TC; 80048-TC; 80061-TC; 80202-TC; 81001; 82570-TC; 82962-TC; 83735-TC; 84100-TC; 84155-TC; 84300-TC; 85025-TC; 85730-TC; 87070-TC; 87081-TC; 87186-TC; 88305-TC; A6209; C1725; C1769; C1887; C1894; C9803; G0378; G0500; J0696; J1644; J2370; J2405; J2543; J2704; J3010; J3370; J3490; J7040; J7050; J7060; Q9967

== ENCOUNTER 2020-10-13 11:45 | Outpatient (CLI) | payer MEDICARE, OTHER ==
[~2020-10-13 11:45] MED LIST changes: +AMLO-213 PO; +ASPI-1169 PO; +CEFT1FRO2 IV; +CHOL100062 PO; -COLLAGENASE 5 GM TUBE UD TP ONE; +LISI10TA29 PO; +TAMS-12 PO
== END 2020-10-13 23:59 | disposition home health service (06) ==
LOC: WOU 11:45
PROVIDERS: ATTEND Podiatrist Foot & Ankle Surgery
DX: E11.621 Type 2 diabetes mellitus with foot ulcer (principal); L97.412 Non-pressure chronic ulcer of right heel and midfoot with fat layer exposed; E11.622 Type 2 diabetes mellitus with other skin ulcer; L97.312 Non-pressure chronic ulcer of right ankle with fat layer exposed; E11.65 Type 2 diabetes mellitus with hyperglycemia; E11.51 Type 2 diabetes mellitus with diabetic peripheral angiopathy without gangrene; L03.115 Cellulitis of right lower limb; M25.571 Pain in right ankle and joints of right foot; R60.0 Localized edema
CPT/HCPCS: G0463

== ENCOUNTER 2020-10-20 11:20 | Outpatient (CLI) | payer MEDICARE, OTHER | END 2020-10-20 23:59 | disposition home health service (06) | LOC: WOU 11:20 | PROVIDERS: ATTEND Podiatrist Foot & Ankle Surgery | DX: E11.622 Type 2 diabetes mellitus with other skin ulcer (principal); L97.312 Non-pressure chronic ulcer of right ankle with fat layer exposed; E11.621 Type 2 diabetes mellitus with foot ulcer; L97.412 Non-pressure chronic ulcer of right heel and midfoot with fat layer exposed; E11.51 Type 2 diabetes mellitus with diabetic peripheral angiopathy without gangrene; E11.65 Type 2 diabetes mellitus with hyperglycemia; M25.571 Pain in right ankle and joints of right foot; Z79.02 Long term (current) use of antithrombotics/antiplatelets; Z79.82 Long term (current) use of aspirin | CPT/HCPCS: 15271; 15275; Q4186 ==

== ENCOUNTER 2020-10-25 09:35 | Outpatient (CLI) | payer MEDICARE, OTHER | END 2020-10-25 23:59 | disposition home or self-care (01) | LOC: VASLAB 09:35 | PROVIDERS: ATTEND Internal Medicine | DX: E11.622 Type 2 diabetes mellitus with other skin ulcer (principal); L97.319 Non-pressure chronic ulcer of right ankle with unspecified severity; E11.51 Type 2 diabetes mellitus with diabetic peripheral angiopathy without gangrene; I10 Essential (primary) hypertension; F10.21 Alcohol dependence, in remission | CPT/HCPCS: G0463 ==

== ENCOUNTER 2020-10-27 10:00 | Outpatient (CLI) | payer MEDICARE, OTHER | END 2020-10-27 23:59 | disposition home health service (06) | LOC: WOU 10:00 | PROVIDERS: ATTEND Podiatrist Foot & Ankle Surgery | DX: E11.621 Type 2 diabetes mellitus with foot ulcer (principal); L97.412 Non-pressure chronic ulcer of right heel and midfoot with fat layer exposed; E11.622 Type 2 diabetes mellitus with other skin ulcer; L97.312 Non-pressure chronic ulcer of right ankle with fat layer exposed; E11.65 Type 2 diabetes mellitus with hyperglycemia; E11.51 Type 2 diabetes mellitus with diabetic peripheral angiopathy without gangrene; M25.571 Pain in right ankle and joints of right foot; M79.672 Pain in left foot; Z79.02 Long term (current) use of antithrombotics/antiplatelets; Z79.82 Long term (current) use of aspirin | CPT/HCPCS: 15271; 15275; Q4186 ==

== ENCOUNTER 2020-11-03 10:38 | Outpatient (CLI) | payer MEDICARE, OTHER ==
[2020-11-03] MEDS ORDERED: LIDOCAINE SOLN 4% 50 ML BOTTLE ONE (10:45)
== END 2020-11-03 23:59 | disposition home health service (06) ==
LOC: WOU 10:38
PROVIDERS: ATTEND Podiatrist Foot & Ankle Surgery
DX: E11.621 Type 2 diabetes mellitus with foot ulcer (principal); L97.412 Non-pressure chronic ulcer of right heel and midfoot with fat layer exposed; E11.622 Type 2 diabetes mellitus with other skin ulcer; L97.312 Non-pressure chronic ulcer of right ankle with fat layer exposed; E11.65 Type 2 diabetes mellitus with hyperglycemia; E11.51 Type 2 diabetes mellitus with diabetic peripheral angiopathy without gangrene; M25.571 Pain in right ankle and joints of right foot; R60.0 Localized edema; Z79.82 Long term (current) use of aspirin; Z79.02 Long term (current) use of antithrombotics/antiplatelets
CPT/HCPCS: 15271; 15275; Q4186

== ENCOUNTER 2020-11-10 10:30 | Outpatient (CLI) | payer MEDICARE, OTHER | END 2020-11-10 23:59 | disposition home health service (06) | LOC: WOU 10:30 | PROVIDERS: ATTEND Podiatrist Foot & Ankle Surgery | DX: E11.621 Type 2 diabetes mellitus with foot ulcer (principal); L97.412 Non-pressure chronic ulcer of right heel and midfoot with fat layer exposed; E11.622 Type 2 diabetes mellitus with other skin ulcer; L97.312 Non-pressure chronic ulcer of right ankle with fat layer exposed; E11.51 Type 2 diabetes mellitus with diabetic peripheral angiopathy without gangrene; E11.65 Type 2 diabetes mellitus with hyperglycemia; R60.0 Localized edema; M25.571 Pain in right ankle and joints of right foot; M79.672 Pain in left foot; Z79.82 Long term (current) use of aspirin; Z79.02 Long term (current) use of antithrombotics/antiplatelets | CPT/HCPCS: 15271; 15275; Q4186 ==

== ENCOUNTER 2020-11-17 10:30 | Outpatient (CLI) | payer MEDICARE, OTHER ==
[2020-11-17] MEDS ORDERED: LIDOCAINE SOLN 4% 50 ML BOTTLE ONE (10:52)
[2020-11-17] MEDS ORDERED: LIDOCAINE HCL/MPF 1% 30 ML VIAL IJ ONE (11:15)
[2020-11-17] MEDS ORDERED: GENTAMICIN 0.1% CREAM 15 GM TUBE ONE (11:24)
== END 2020-11-17 23:59 | disposition home health service (06) ==
LOC: WOU 10:30
PROVIDERS: ATTEND Podiatrist Foot & Ankle Surgery
DX: E11.622 Type 2 diabetes mellitus with other skin ulcer (principal); L97.312 Non-pressure chronic ulcer of right ankle with fat layer exposed; E11.621 Type 2 diabetes mellitus with foot ulcer; L97.412 Non-pressure chronic ulcer of right heel and midfoot with fat layer exposed; E11.51 Type 2 diabetes mellitus with diabetic peripheral angiopathy without gangrene; E11.65 Type 2 diabetes mellitus with hyperglycemia; M25.571 Pain in right ankle and joints of right foot; I10 Essential (primary) hypertension; R60.0 Localized edema; Z79.02 Long term (current) use of antithrombotics/antiplatelets; Z79.82 Long term (current) use of aspirin
CPT/HCPCS: 11043; J3490

== ENCOUNTER 2020-11-22 11:00 | Outpatient (CLI) | payer MEDICARE, OTHER | END 2020-11-22 23:59 | disposition home or self-care (01) | LOC: VASLAB 11:00 | PROVIDERS: ATTEND Internal Medicine | DX: E11.621 Type 2 diabetes mellitus with foot ulcer (principal); L97.419 Non-pressure chronic ulcer of right heel and midfoot with unspecified severity; E11.622 Type 2 diabetes mellitus with other skin ulcer; L97.319 Non-pressure chronic ulcer of right ankle with unspecified severity; E11.51 Type 2 diabetes mellitus with diabetic peripheral angiopathy without gangrene; I10 Essential (primary) hypertension; F10.21 Alcohol dependence, in remission | CPT/HCPCS: G0463 ==

== ENCOUNTER 2020-11-22 13:00 | Outpatient (CLI) | payer MEDICARE, OTHER | END 2020-11-22 23:59 | disposition home health service (06) | LOC: WOU 13:00 | PROVIDERS: ATTEND Podiatrist Foot & Ankle Surgery | DX: E11.621 Type 2 diabetes mellitus with foot ulcer (principal); L97.412 Non-pressure chronic ulcer of right heel and midfoot with fat layer exposed; L97.312 Non-pressure chronic ulcer of right ankle with fat layer exposed; E11.622 Type 2 diabetes mellitus with other skin ulcer; E11.65 Type 2 diabetes mellitus with hyperglycemia; E11.51 Type 2 diabetes mellitus with diabetic peripheral angiopathy without gangrene; Z79.02 Long term (current) use of antithrombotics/antiplatelets; Z79.82 Long term (current) use of aspirin; R60.0 Localized edema; M25.571 Pain in right ankle and joints of right foot; M79.672 Pain in left foot | CPT/HCPCS: 15271; 15275; Q4186; G0463 ==

== ENCOUNTER → 2020-11-28 | Outpatient (CLI) | payer MEDICARE, OTHER ==
[~2020-11-28] MED LIST changes: +GENTAMICIN 0.1% CREAM 15 GM TUBE ONE
== END | disposition home health service (06) ==
LOC: WOU 09:05
PROVIDERS: ATTEND Podiatrist Foot & Ankle Surgery
DX: E11.622 Type 2 diabetes mellitus with other skin ulcer (principal); L97.312 Non-pressure chronic ulcer of right ankle with fat layer exposed; E11.621 Type 2 diabetes mellitus with foot ulcer; L97.412 Non-pressure chronic ulcer of right heel and midfoot with fat layer exposed; L03.115 Cellulitis of right lower limb; R60.0 Localized edema; E11.65 Type 2 diabetes mellitus with hyperglycemia; E11.51 Type 2 diabetes mellitus with diabetic peripheral angiopathy without gangrene; M25.571 Pain in right ankle and joints of right foot; Z79.02 Long term (current) use of antithrombotics/antiplatelets; Z79.82 Long term (current) use of aspirin
CPT/HCPCS: 11042; 87070-TC; 87075-TC

== ENCOUNTER → 2020-12-01 | Outpatient (CLI) | payer MEDICARE, OTHER ==
[~2020-12-01] MED LIST changes: +CLOP75TA15 PO; -GENTAMICIN 0.1% CREAM 15 GM TUBE ONE
[2020-12-01 12:12] LABS: BASOPHILS % (AUTO) 0.6 % (0.0-2.0); EOSINOPHILS % (AUTO) 2.3 % (0.0-6.0); HEMATOCRIT 34 % (39-51); HEMOGLOBIN 11.3 g/dL (13.5-17.5); LYMPHOCYTES # (AUTO) 1.1 K/uL (0.8-4.8); MEAN CORPUSCULAR HGB CONC 33 g/dl (31.0-36.0); MEAN CORPUSCULAR VOLUME 96 fL (80-96); MONOCYTES # (AUTO) 0.4 K/uL (0.1-1.30); MONOCYTES % (AUTO) 7.5 % (2.0-12.0); NEUTROPHILS # (AUTO) 3.5 K/uL (1.8-8.9); NEUTROPHILS % (AUTO) 67.6 % (43.0-81.0); PLATELET COUNT (AUTO) 139 K/uL (150-450); RED BLOOD CELL COUNT(AUTO) 3.56 MIL/uL (4.5-6.0); WHITE BLOOD COUNT (AUTO) 5.1 K/uL (4.3-11.0)
[2020-12-01 12:20] LABS: CALCIUM, SERUM 9.1 mg/dL (8.5-10.1); CREATININE 1.2 mg/dL (0.6-1.3); POTASSIUM 4.3 mmol/L (3.5-5.1)
== END | disposition home or self-care (01) ==
LOC: LAB 10:37
PROVIDERS: ATTEND Internal Medicine
DX: Z01.812 Encounter for preprocedural laboratory examination (principal); Z20.822 Contact with and (suspected) exposure to COVID-19; I48.91 Unspecified atrial fibrillation; E11.9 Type 2 diabetes mellitus without complications; I10 Essential (primary) hypertension
CPT/HCPCS: 36415; 80048; 85025; 85730; C9803; U0003

== ENCOUNTER 2020-12-05 07:26 | Inpatient (IN) | payer MEDICARE, OTHER ==
[~2020-12-05] VITALS: Ht 160 cm; Wt 81.6 kg
[2020-12-05] VITALS (20 sets, daily range): BP systolic 123–166; BP diastolic 58–129
[~2020-12-05 07:26] MED LIST changes: -CLOP75TA15 PO
[2020-12-05] MEDS ORDERED: CLOP75TA15 PO (08:13)
[2020-12-05] MEDS ORDERED: IV NS 0.9% 1,000 ML ONE (08:21)
[2020-12-05] MEDS ORDERED: LIDOCAINE 2% 50 ML MDV IJ ONE (08:22)
[2020-12-05] MEDS ORDERED: IODIXANOL 300 ML IV ONE (08:22)
[2020-12-05] MEDS ORDERED: LIDOCAINE HCL/MPF 1% 30 ML VIAL IJ ONE (08:32)
[2020-12-05] MEDS ORDERED: FENTANYL PF 100MCG/2ML AMPUL ONE ×2 (08:58→10:21)
[2020-12-05] MEDS ORDERED: MIDAZOLAM HCL 2 MG/2ML VIAL ONE (08:58)
[2020-12-05] MEDS ORDERED: HEPARIN SODIUM, PORCINE 1,000 UNIT/ML VIAL ONE ×3 (09:04→10:17)
[2020-12-05] MEDS ORDERED: IODIXANOL 320MG/ML 50 ML IV ONE (09:48)
[2020-12-05] MEDS ORDERED: NICARDIPINE IN DEXTROSE,ISO-OS 200 ML IV ONE (09:50)
[2020-12-05] MEDS ORDERED: HEPARIN SODIUM, PORCINE 5000 UNITS/1 ML VIAL ONE (09:50)
[2020-12-05] MEDS ORDERED: hydrALAZINE HCL IV 20 MG VIAL ONE (10:01)
[2020-12-05] MEDS ORDERED: NITROGLYCERIN IN 5 % DEXTROSE 250 ML IV ONE (10:59)
[2020-12-05] MEDS ORDERED: ONDANSETRON HCL/PF 4 MG/2 ML VIAL ONE (11:03)
[2020-12-05] MEDS ORDERED: IV NS 0.9% 1,000 ML IV ONE (13:00)
[2020-12-05] MEDS ORDERED: HEPARIN INFUSION/D5W 500 ML IV PRN (13:00)
--- NOTE | 2020-12-05 13:00 | NUR ---
ICU/RN PT IS TRANSFERRED FROM DYNAMOMETER REPAIRER POST RIGHT LOWER EXTREMITY ANGIOGRAM WITH INTERVENTION.LEFT FEMORAL ACCESS COVERED WITH DRESSING AND RIGHT POSTERIOR TIBIAL ,WAS UNSUCCESSFUL.RIGHT FOOT COLD NO PALPABLE PULSES ,ONLY RIGHT POSTERIOR TIBIAL WEAK WITH DOPPLER.PT IS ON ROOM AIR,SAT O2-99%.V/S STABLE,AFEBRILE.NO PAIN REPORTED AT THIS TIME.IV FLUIDS STARTED ORDERED.USE URINAL .RIGHT LOWER LEG DIABETIC ULCERS WOUND NOTED.DRESSING APPLIED.PHOTO TAKEN WOUND NURSE NOTIFIED.
[2020-12-05] MEDS ORDERED: MORPHINE SULFATE INJ 2 MG/ML DISP.SYRIN IV PRN (13:30)
[2020-12-05] MEDS ORDERED: Z GUARD REMEDY 2 OZ OINT TP PRN (13:30)
[2020-12-05] MEDS ORDERED: ACETAMINOPHEN 325 MG TABLET PO PRN (13:30)
[2020-12-05] MEDS ORDERED: ONDANSETRON HCL/PF 4 MG/2 ML VIAL IVP PRN (13:30)
[2020-12-05] MEDS ORDERED: MAGNESIUM HYDROXIDE 30 ML UDC PO PRN (13:30)
[2020-12-05] MEDS ORDERED: MAG HYDROX/AL HYDROX/SIMETH 30 ML UDC PO PRN (13:30)
--- NOTE | 2020-12-05 15:10 | NUR ---
ICU/RN PT C/O OF RIGHT FOOT PAIN 9-03/18.MORPHINE IV GIVEN ORDERED.MD NOTIFIED.AND SEEN THE PT RIGHT LOWER LEG COLD .HOT COMPRESS APPLIED.CONTINUE MONITORING.
[2020-12-05] MEDS: ONDANSETRON HCL/PF 4 MG/2 ML VIAL IV PRN ×2 (15:17→22:48)
[2020-12-05] MEDS ORDERED: DEXTROSE 50%-WATER 50 ML DISP.SYRIN IV PRN (16:00)
[2020-12-05] MEDS ORDERED: MORPHINE SULFATE INJ 4 MG/ML DISP.SYRIN IV PRN (16:00)
[2020-12-05] MEDS: BLOOD SUGAR DIAGNOSTIC 1 EACH STRIP IN SCH ×2 (17:19→23:03)
--- NOTE | 2020-12-05 17:30 | NUR ---
ICU/RN PER DR MUMTAZ BARNARD AND D/C HEPARIN DRIP.RIGHT FOOT COLD.V/S STABLE,AFEBRILE.PT EATS 100% FROM HIS DINNER TRAY.
--- NOTE | 2020-12-05 19:30 | NUR ---
ICU/FLOOR COVERING PRINTER ASSISTANT RECEIVED REPORT FROM DAY NURSE. SEE FLOWSHEET FOR ASSESSMENT. THERE IS NO IV TITRATION TO ADDRESS ON THE SPREAD SHEET, JUST NS TO RUN FOR 8 HRS THEN OFF. PT TURNS SELF ALONG WITH REPOSITIONING SELF FOR COMFORT AND CARE. NO ACUTE DISTRESS SEEN AT THIS TIME WILL CONTINUE MONITOR THIS PT.
[2020-12-05] MEDS ORDERED: HYDROCODONE/APAP 5/325MG TABLET PO PRN (21:00)
--- NOTE | 2020-12-05 21:00 | NUR ---
ICU/EMERGENCY MAN PT COMPLAINED ABOUT PAIN, WHICH WAS RATED 4/10. PT SAID HE DID NOT LIKE MORPHINE, PLACED A CALL OUT TO THE LEAD OPERATOR MD ABOUT THIS. SAID TO GIVE NORCO 1 TAB FOR THIS PRN EVERY 4 HOURS PRN. ORDER WAS RECIEVED AND CARRIED OUT. WILL MONITOR THIS PT AND HIS PAIN.
--- NOTE | 2020-12-05 22:10 | NUR ---
ICU/END STAPLER HS ACCU CHECK WAS 162, THIS WAS COVERED WITH 3 UNITS OF REGULAR INSULIN. WILL CONTINUE TO MONITOR THIS PT AND HIS BLOOD SUGAR ORDERED MD LYLES AND HOSPITAL PROTOCAL.
[2020-12-05] MEDS: INSULIN REGULAR, HUMAN 100 UNIT/ML 3 ML VIAL SQ PRN (23:06)
--- NOTE | 2020-12-05 23:07 | NUR ---
ICU/CONTRACTS MANAGER PT COMPLAINED ABOUT NAUSEA, NOTIFED CHARGE NURSE ABOUT THIS, WHO THEN GAVE ZOFRAN PRN FOR THIS. WILL CONTINUE TO MONITOR THIS PT AND HIS NAUSEA. CALL LIGHT WITHIN REACH, NO DISTRESS SEEN OR NOTED. CALL LIGHT WITHIN REACH.
[2020-12-06] VITALS (14 sets, daily range): BP systolic 123–172; BP diastolic 55–80
--- NOTE | 2020-12-06 01:20 | NUR ---
ICU/ORTHOPHOTO TECH/DRAFTSMAN LATE ENTRY TALKED TO THE SURGEON EARLY IN SHIFT SAID TO CLOSELY MONITOR THE PT'S SKIN COLOR AND PULSE EVERY 4 HRS ALSO PLEASE PUT FEET IN THE DOWN POSITION AND HEAD UP TO GET BLOOD FLOW TO THE FEET.
--- NOTE | 2020-12-06 03:10 | NUR ---
ICU/NURSE SUBSTANCE ABUSE CONTINUE TO DO PULSE CHECKS, NO DISCOLORATION SEEN HOWEVER SITE LEG REMAINS COOL TO TOUCH. PULSE FELT ON THE LEFT FOOT. WILL CONTINUE TO MONITOR BOTH FEET AND LEGS.
[2020-12-06 04:27] LABS: BASOPHILS % (AUTO) 0.4 % (0.0-2.0); EOSINOPHILS % (AUTO) 1.5 % (0.0-6.0); HEMATOCRIT 32 % (39-51); HEMOGLOBIN 10.8 g/dL (13.5-17.5); LYMPHOCYTES # (AUTO) 1.3 K/uL (0.8-4.8); LYMPHOCYTES % (AUTO) 19.9 % (20.0-44.0); MEAN CORPUSCULAR HGB CONC 34 g/dl (31.0-36.0); MEAN CORPUSCULAR VOLUME 95 fL (80-96); MONOCYTES # (AUTO) 0.5 K/uL (0.1-1.30); MONOCYTES % (AUTO) 7.2 % (2.0-12.0); NEUTROPHILS # (AUTO) 4.7 K/uL (1.8-8.9); PLATELET COUNT (AUTO) 128 K/uL (150-450); RED BLOOD CELL COUNT(AUTO) 3.34 MIL/uL (4.5-6.0); WHITE BLOOD COUNT (AUTO) 6.6 K/uL (4.3-11.0)
[2020-12-06 04:41] LABS: CALCIUM, SERUM 8.7 mg/dL (8.5-10.1); CREATININE 1.1 mg/dL (0.6-1.3); MAGNESIUM 2.3 mg/dL (1.8-2.4); PHOSPHORUS 3.9 mg/dL (2.5-4.9); POTASSIUM 4.5 mmol/L (3.5-5.1)
--- NOTE | 2020-12-06 05:15 | NUR ---
ICU/VACUUM PAN TENDER AM LABS WERE DRAWN. AWAIT FOR ANY ABNORMAL RESULTS.
--- NOTE | 2020-12-06 07:35 | NUR ---
ICU/RN PT IS RESTING IN THE BED.ON ROOM AIR.SAT O2-99%.V/S STABLE,AFEBRILE.NO PAIN REPORTED AT THIS TIME.IV-HL.PT USE URINAL. RIGHT LOWER LEG COVERED WITH DRESSING.
--- NOTE | 2020-12-06 07:51 | NUR ---
WOUND CARE CONSULT: PT PRESENTS CONTINENT AT THIS TIME WITH DRY INTACT DRESSING TO RT FOOT AND SCARRING TO LEFT FOOT, PRESENT ON ADMISSION. DEFER TO DPM AND VASCULAR MD FOR WOUND TREATMENT PLAN. RECOMMENDATIONS MADE FOR SKIN PROTECTION. DISCUSSED WITH NURSING STAFF. MD IN AGREEMENT WITH PLAN OF CARE. Addendum: 12/06/20 at 0754 by HILARY LAUREANO WNDNU RAISED AREA/EDEMA NOTED TO GROIN REGIONS. RN TO DISCUSS WITH MD TODAY.
[2020-12-06] MEDS: BLOOD SUGAR DIAGNOSTIC 1 EACH STRIP IN SCH ×2 (08:22→11:33)
[2020-12-06 08:38] LABS: BASOPHILS % (AUTO) 0.3 % (0.0-2.0); EOSINOPHILS % (AUTO) 1.7 % (0.0-6.0); HEMATOCRIT 34 % (39-51); HEMOGLOBIN 11.4 g/dL (13.5-17.5); LYMPHOCYTES # (AUTO) 1.2 K/uL (0.8-4.8); LYMPHOCYTES % (AUTO) 15.7 % (20.0-44.0); MEAN CORPUSCULAR HGB CONC 34 g/dl (31.0-36.0); MEAN CORPUSCULAR VOLUME 96 fL (80-96); MONOCYTES # (AUTO) 0.5 K/uL (0.1-1.30); MONOCYTES % (AUTO) 6.6 % (2.0-12.0); NEUTROPHILS # (AUTO) 5.6 K/uL (1.8-8.9); NEUTROPHILS % (AUTO) 75.7 % (43.0-81.0); PLATELET COUNT (AUTO) 139 K/uL (150-450); RED BLOOD CELL COUNT(AUTO) 3.55 MIL/uL (4.5-6.0); WHITE BLOOD COUNT (AUTO) 7.4 K/uL (4.3-11.0)
[2020-12-06] MEDS ORDERED: AMLODIPINE BESYLATE 10 MG TABLET PO SCH (09:00)
[2020-12-06] MEDS ORDERED: ASPIRIN 81 MG TAB.CHEW PO SCH (09:00)
[2020-12-06] MEDS ORDERED: CLOPIDOGREL BISULFATE 75 MG TABLET PO SCH (09:00)
[2020-12-06] MEDS ORDERED: Medication Not On Formulary EA (Ceftriaxone Na/Dextrose,Iso (Ceftriaxone 1 Gm Piggyback) IV SCH (09:00)
[2020-12-06] MEDS ORDERED: TAMSULOSIN 0.4 MG CAP.SR.24H PO SCH (09:00)
[2020-12-06] MEDS ORDERED: LISINOPRIL (10MG) 10 MG TABLET PO SCH (09:00)
--- NOTE | 2020-12-06 09:00 | NUR ---
ICU/RN DUE MEDS ARE GIVEN ORDERED.PT EATS 100% FROM HIS MEAL TRAY.
[2020-12-06 09:07] LABS: ALBUMIN 3.5 g/dL (3.4-5.0); BILIRUBIN,TOTAL 0.4 mg/dL (0.2-1.0); CALCIUM, SERUM 9.2 mg/dL (8.5-10.1); CREATININE 1.1 mg/dL (0.6-1.3); MAGNESIUM 2.3 mg/dL (1.8-2.4); PHOSPHORUS 3.5 mg/dL (2.5-4.9); POTASSIUM 4.1 mmol/L (3.5-5.1); TOTAL PROTEIN, SERUM 7.7 g/dL (6.4-8.2)
[2020-12-06] MEDS: INSULIN REGULAR, HUMAN 100 UNIT/ML 3 ML VIAL SQ PRN (11:42)
--- NOTE | 2020-12-06 13:00 | NUR ---
ICU/BURRING MACHINE OPERATOR DRESSING DONE ORDERED. SEEN THE PT .OK D/C PT HOME.
--- NOTE | 2020-12-06 13:30 | NUR ---
ICU/RN PT D/C HOME.V/S STABLE,AFEBRILE NO PAIN REPORTED AT THIS TIME.IV-D/C .ALL INSTRUCTION PROVIDED.LEFT SOH VIA PRIVATE CAR WITH THE FAMILY.
== END 2020-12-06 13:30 | disposition home or self-care (01) | DRG 252 ==
LOC: CATHLAB 07:26 → ICU 12:46
PROVIDERS: ADMIT Internal Medicine; ATTEND Internal Medicine
PROC: B41FYZZ Fluoroscopy of Right Lower Extremity Arteries using Other Contrast (ICD-10-PCS; principal; 2020-12-05)
PROC: 047R3ZZ Dilation of Right Posterior Tibial Artery, Percutaneous Approach (ICD-10-PCS; 2020-12-05)
DX: E11.51 Type 2 diabetes mellitus with diabetic peripheral angiopathy without gangrene (principal); E43 Unspecified severe protein-calorie malnutrition; E11.621 Type 2 diabetes mellitus with foot ulcer; L97.519 Non-pressure chronic ulcer of other part of right foot with unspecified severity; E78.5 Hyperlipidemia, unspecified; I10 Essential (primary) hypertension; I25.10 Atherosclerotic heart disease of native coronary artery without angina pectoris; N40.0 Benign prostatic hyperplasia without lower urinary tract symptoms; E11.622 Type 2 diabetes mellitus with other skin ulcer; I70.209 Unspecified atherosclerosis of native arteries of extremities, unspecified extremity
CPT/HCPCS: 36415; 75630-TC; 75716-TC; 80048-TC; 80053-TC; 82962-TC; 83735-TC; 84100-TC; 85025-TC; 85610-TC; 85730-TC; 87081-TC; C1725; C1769; C1887; C1894; G0378; G0500; J0360; J1644; J1815; J2250; J2270; J2405; J3010; J3490; Q9967

== ENCOUNTER 2020-12-08 08:55 | Outpatient (CLI) | payer MEDICARE, OTHER ==
[~2020-12-08 08:55] MED LIST changes: -CEFT1FRO2 IV
[2020-12-08] MEDS ORDERED: LIDOCAINE SOLN 4% 50 ML BOTTLE ONE (09:07)
== END 2020-12-08 23:59 | disposition home health service (06) ==
LOC: WOU 08:55
PROVIDERS: ATTEND Podiatrist Foot & Ankle Surgery
DX: E11.622 Type 2 diabetes mellitus with other skin ulcer (principal); L97.312 Non-pressure chronic ulcer of right ankle with fat layer exposed; E11.621 Type 2 diabetes mellitus with foot ulcer; L97.412 Non-pressure chronic ulcer of right heel and midfoot with fat layer exposed; E11.51 Type 2 diabetes mellitus with diabetic peripheral angiopathy without gangrene; L03.115 Cellulitis of right lower limb; R60.0 Localized edema; E11.65 Type 2 diabetes mellitus with hyperglycemia; M79.672 Pain in left foot; M25.571 Pain in right ankle and joints of right foot; Z79.02 Long term (current) use of antithrombotics/antiplatelets; Z79.82 Long term (current) use of aspirin
CPT/HCPCS: 11042

== ENCOUNTER 2020-12-13 09:05 | Outpatient (CLI) | payer MEDICARE, OTHER ==
[2020-12-13] MEDS ORDERED: GENTAMICIN 0.1% CREAM 15 GM TUBE ONE (09:45)
== END 2020-12-13 23:59 | disposition home health service (06) ==
LOC: WOU 09:05
PROVIDERS: ATTEND Specialist
DX: E11.622 Type 2 diabetes mellitus with other skin ulcer (principal); L97.312 Non-pressure chronic ulcer of right ankle with fat layer exposed; E11.621 Type 2 diabetes mellitus with foot ulcer; L97.412 Non-pressure chronic ulcer of right heel and midfoot with fat layer exposed; E11.65 Type 2 diabetes mellitus with hyperglycemia; E11.51 Type 2 diabetes mellitus with diabetic peripheral angiopathy without gangrene; M79.672 Pain in left foot; R60.0 Localized edema; Z79.02 Long term (current) use of antithrombotics/antiplatelets; Z79.82 Long term (current) use of aspirin
CPT/HCPCS: 82962; G0463

== ENCOUNTER 2020-12-15 09:00 | Outpatient (CLI) | payer MEDICARE, OTHER ==
[2020-12-15] MEDS ORDERED: GENTAMICIN 0.1% CREAM 15 GM TUBE ONE (09:21)
== END 2020-12-15 23:59 | disposition home health service (06) ==
LOC: WOU 09:00
PROVIDERS: ATTEND Podiatrist Foot & Ankle Surgery
DX: E11.622 Type 2 diabetes mellitus with other skin ulcer (principal); E11.621 Type 2 diabetes mellitus with foot ulcer; L97.312 Non-pressure chronic ulcer of right ankle with fat layer exposed; L97.412 Non-pressure chronic ulcer of right heel and midfoot with fat layer exposed; L03.115 Cellulitis of right lower limb; E11.51 Type 2 diabetes mellitus with diabetic peripheral angiopathy without gangrene; R60.0 Localized edema; E11.65 Type 2 diabetes mellitus with hyperglycemia; M25.571 Pain in right ankle and joints of right foot; Z79.82 Long term (current) use of aspirin; Z79.02 Long term (current) use of antithrombotics/antiplatelets
CPT/HCPCS: 11042

== ENCOUNTER 2020-12-19 09:02 | Outpatient (CLI) | payer MEDICARE, OTHER | END 2020-12-19 23:59 | disposition home or self-care (01) | LOC: MSC 09:02 | PROVIDERS: ATTEND Internal Medicine | DX: F32.9 Major depressive disorder, single episode, unspecified (principal); R45.851 Suicidal ideations; I73.9 Peripheral vascular disease, unspecified; S91.309D Unspecified open wound, unspecified foot, subsequent encounter; R07.9 Chest pain, unspecified; E11.22 Type 2 diabetes mellitus with diabetic chronic kidney disease; I12.9 Hypertensive chronic kidney disease with stage 1 through stage 4 chronic kidney disease, or unspecified chronic kidney disease; N18.30 Chronic kidney disease, stage 3 unspecified; Z87.891 Personal history of nicotine dependence; E55.9 Vitamin D deficiency, unspecified ==

== ENCOUNTER 2020-12-22 09:00 | Outpatient (CLI) | payer MEDICARE, OTHER ==
[2020-12-22] MEDS ORDERED: LIDOCAINE SOLN 4% 50 ML BOTTLE ONE (09:03)
[2020-12-22] MEDS ORDERED: MUPIROCIN 2% CREAM 15 GM TUBE TP ONE (09:35)
[2020-12-22] MEDS ORDERED: GENTAMICIN 0.1% CREAM 15 GM TUBE ONE (09:36)
== END 2020-12-22 23:59 | disposition home health service (06) ==
LOC: WOU 09:00
PROVIDERS: ATTEND Podiatrist Foot & Ankle Surgery
DX: E11.622 Type 2 diabetes mellitus with other skin ulcer (principal); L97.312 Non-pressure chronic ulcer of right ankle with fat layer exposed; E11.621 Type 2 diabetes mellitus with foot ulcer; L97.412 Non-pressure chronic ulcer of right heel and midfoot with fat layer exposed; L03.115 Cellulitis of right lower limb; E11.65 Type 2 diabetes mellitus with hyperglycemia; E11.51 Type 2 diabetes mellitus with diabetic peripheral angiopathy without gangrene; M25.571 Pain in right ankle and joints of right foot; R60.0 Localized edema; M79.672 Pain in left foot; I10 Essential (primary) hypertension; Z79.82 Long term (current) use of aspirin; Z79.02 Long term (current) use of antithrombotics/antiplatelets
CPT/HCPCS: 11042; 11043

== ENCOUNTER 2020-12-22 09:41 | Outpatient (CLI) | payer MEDICARE, OTHER ==
[2020-12-22 12:02] LABS: BASOPHILS % (AUTO) 0.5 % (0.0-2.0); EOSINOPHILS % (AUTO) 2.1 % (0.0-6.0); HEMATOCRIT 33 % (39-51); LYMPHOCYTES # (AUTO) 1.2 K/uL (0.8-4.8); LYMPHOCYTES % (AUTO) 22.5 % (20.0-44.0); MEAN CORPUSCULAR HGB CONC 33 g/dl (31.0-36.0); MEAN CORPUSCULAR VOLUME 97 fL (80-96); MONOCYTES # (AUTO) 0.4 K/uL (0.1-1.30); MONOCYTES % (AUTO) 7.8 % (2.0-12.0); NEUTROPHILS # (AUTO) 3.7 K/uL (1.8-8.9); NEUTROPHILS % (AUTO) 67.1 % (43.0-81.0); PLATELET COUNT (AUTO) 171 K/uL (150-450); WHITE BLOOD COUNT (AUTO) 5.5 K/uL (4.3-11.0)
[2020-12-22 13:00] LABS: ALBUMIN 3.7 g/dL (3.4-5.0); BILIRUBIN,TOTAL 0.4 mg/dL (0.2-1.0); CALCIUM, SERUM 8.8 mg/dL (8.5-10.1); CREATININE 1.2 mg/dL (0.6-1.3); MAGNESIUM 2.2 mg/dL (1.8-2.4); PHOSPHORUS 3.4 mg/dL (2.5-4.9); POTASSIUM 4.5 mmol/L (3.5-5.1); TOTAL PROTEIN, SERUM 7.8 g/dL (6.4-8.2)
== END 2020-12-22 23:59 | disposition home or self-care (01) ==
LOC: LAB 09:41
PROVIDERS: ATTEND Internal Medicine
DX: I12.9 Hypertensive chronic kidney disease with stage 1 through stage 4 chronic kidney disease, or unspecified chronic kidney disease (principal); E11.22 Type 2 diabetes mellitus with diabetic chronic kidney disease; N18.2 Chronic kidney disease, stage 2 (mild); Z79.899 Other long term (current) drug therapy
CPT/HCPCS: 36415; 80053-TC; 80061-TC; 82306; 83735-TC; 84100-TC; 85025-TC

== ENCOUNTER 2020-12-22 09:56 | Outpatient (CLI) | payer MEDICARE, OTHER | END 2020-12-22 23:59 | disposition home or self-care (01) | LOC: MRI 09:56 | PROVIDERS: ATTEND Specialist | DX: M19.071 Primary osteoarthritis, right ankle and foot (principal); M77.31 Calcaneal spur, right foot; M86.8X7 Other osteomyelitis, ankle and foot; E11.621 Type 2 diabetes mellitus with foot ulcer | CPT/HCPCS: 73718-TC ==

== ENCOUNTER 2020-12-29 09:00 | Outpatient (CLI) | payer MEDICARE, OTHER ==
[2020-12-29] MEDS ORDERED: MUPIROCIN 2% CREAM 15 GM TUBE TP ONE (09:43)
== END 2020-12-29 23:59 | disposition home health service (06) ==
LOC: WOU 09:00
PROVIDERS: ATTEND Podiatrist Foot & Ankle Surgery
DX: E11.621 Type 2 diabetes mellitus with foot ulcer (principal); L97.412 Non-pressure chronic ulcer of right heel and midfoot with fat layer exposed; E11.622 Type 2 diabetes mellitus with other skin ulcer; L97.312 Non-pressure chronic ulcer of right ankle with fat layer exposed; L03.115 Cellulitis of right lower limb; E11.65 Type 2 diabetes mellitus with hyperglycemia; M25.571 Pain in right ankle and joints of right foot; E11.51 Type 2 diabetes mellitus with diabetic peripheral angiopathy without gangrene; R60.0 Localized edema; Z79.82 Long term (current) use of aspirin; Z79.02 Long term (current) use of antithrombotics/antiplatelets
CPT/HCPCS: 11042

== ENCOUNTER 2021-01-05 08:15 | Outpatient (CLI) | payer MEDICARE, OTHER ==
[~2021-01-05 08:15] MED LIST changes: +CEFT1FRO2 IV; +CLOP75TA15 PO
[2021-01-05] MEDS ORDERED: GENTAMICIN 0.1% CREAM 15 GM TUBE ONE (08:51)
[2021-01-05] MEDS ORDERED: MUPIROCIN 2% CREAM 15 GM TUBE TP ONE (08:51)
== END 2021-01-05 23:59 | disposition home health service (06) ==
LOC: WOU 08:15
PROVIDERS: ATTEND Podiatrist Foot & Ankle Surgery
DX: E11.622 Type 2 diabetes mellitus with other skin ulcer (principal); L97.312 Non-pressure chronic ulcer of right ankle with fat layer exposed; E11.621 Type 2 diabetes mellitus with foot ulcer; L97.412 Non-pressure chronic ulcer of right heel and midfoot with fat layer exposed; L03.115 Cellulitis of right lower limb; E11.65 Type 2 diabetes mellitus with hyperglycemia; R60.0 Localized edema; M25.571 Pain in right ankle and joints of right foot; M79.672 Pain in left foot; E11.51 Type 2 diabetes mellitus with diabetic peripheral angiopathy without gangrene; Z79.02 Long term (current) use of antithrombotics/antiplatelets; Z79.82 Long term (current) use of aspirin; I10 Essential (primary) hypertension
CPT/HCPCS: 11042; 11043

== ENCOUNTER 2021-01-12 08:35 | Outpatient (CLI) | payer MEDICARE, OTHER ==
[2021-01-12] MEDS ORDERED: LIDOCAINE SOLN 4% 50 ML BOTTLE ONE (08:50)
[2021-01-12] MEDS ORDERED: MUPIROCIN 2% CREAM 15 GM TUBE TP ONE (09:09)
[2021-01-12] MEDS ORDERED: GENTAMICIN 0.1% CREAM 15 GM TUBE ONE (09:10)
== END 2021-01-12 23:59 | disposition home health service (06) ==
LOC: WOU 08:35
PROVIDERS: ATTEND Podiatrist Foot & Ankle Surgery
DX: E11.621 Type 2 diabetes mellitus with foot ulcer (principal); L97.415 Non-pressure chronic ulcer of right heel and midfoot with muscle involvement without evidence of necrosis; E11.622 Type 2 diabetes mellitus with other skin ulcer; L97.312 Non-pressure chronic ulcer of right ankle with fat layer exposed; L97.812 Non-pressure chronic ulcer of other part of right lower leg with fat layer exposed; E11.51 Type 2 diabetes mellitus with diabetic peripheral angiopathy without gangrene; Z79.82 Long term (current) use of aspirin; Z79.02 Long term (current) use of antithrombotics/antiplatelets
CPT/HCPCS: 11042; 11043

== ENCOUNTER → 2021-01-12 | Outpatient (CLI) | payer MEDICARE, OTHER ==
[~2021-01-12] MED LIST changes: -CEFT1FRO2 IV; -CLOP75TA15 PO
== END | disposition home or self-care (01) ==
LOC: MSC 15:00
PROVIDERS: ATTEND Internal Medicine
DX: E11.22 Type 2 diabetes mellitus with diabetic chronic kidney disease (principal); I12.9 Hypertensive chronic kidney disease with stage 1 through stage 4 chronic kidney disease, or unspecified chronic kidney disease; N18.30 Chronic kidney disease, stage 3 unspecified; I73.9 Peripheral vascular disease, unspecified; S91.309D Unspecified open wound, unspecified foot, subsequent encounter; E55.9 Vitamin D deficiency, unspecified; Z79.899 Other long term (current) drug therapy

== ENCOUNTER 2021-01-19 11:00 | Outpatient (CLI) | payer MEDICARE, OTHER ==
[2021-01-19] MEDS ORDERED: GENTAMICIN 0.1% CREAM 15 GM TUBE ONE (12:04)
[2021-01-19] MEDS ORDERED: MUPIROCIN 2% CREAM 15 GM TUBE TP ONE (12:04)
== END 2021-01-19 23:59 | disposition home health service (06) ==
LOC: WOU 11:00
PROVIDERS: ATTEND Podiatrist Foot & Ankle Surgery
DX: E11.621 Type 2 diabetes mellitus with foot ulcer (principal); L97.412 Non-pressure chronic ulcer of right heel and midfoot with fat layer exposed; L97.312 Non-pressure chronic ulcer of right ankle with fat layer exposed; L97.812 Non-pressure chronic ulcer of other part of right lower leg with fat layer exposed; E11.622 Type 2 diabetes mellitus with other skin ulcer; Z86.31 Personal history of diabetic foot ulcer; I87.8 Other specified disorders of veins; S86.011A Strain of right Achilles tendon, initial encounter; X58.XXXA Exposure to other specified factors, initial encounter; Y92.89 Other specified places as the place of occurrence of the external cause; E11.51 Type 2 diabetes mellitus with diabetic peripheral angiopathy without gangrene; R60.0 Localized edema; I10 Essential (primary) hypertension; Z79.02 Long term (current) use of antithrombotics/antiplatelets; Z79.899 Other long term (current) drug therapy
CPT/HCPCS: 11043

== ENCOUNTER 2021-01-26 09:05 | Outpatient (CLI) | payer MEDICARE, OTHER ==
[2021-01-26] MEDS ORDERED: LIDOCAINE SOLN 4% 50 ML BOTTLE ONE (09:30)
[2021-01-26] MEDS ORDERED: MUPIROCIN 2% CREAM 15 GM TUBE TP ONE (09:41)
== END 2021-01-26 23:59 | disposition home health service (06) ==
LOC: WOU 09:05
PROVIDERS: ATTEND Podiatrist Foot & Ankle Surgery
DX: E11.622 Type 2 diabetes mellitus with other skin ulcer (principal); L97.322 Non-pressure chronic ulcer of left ankle with fat layer exposed; L97.312 Non-pressure chronic ulcer of right ankle with fat layer exposed; L97.412 Non-pressure chronic ulcer of right heel and midfoot with fat layer exposed; E11.621 Type 2 diabetes mellitus with foot ulcer; E11.51 Type 2 diabetes mellitus with diabetic peripheral angiopathy without gangrene; R60.0 Localized edema; E11.65 Type 2 diabetes mellitus with hyperglycemia; I10 Essential (primary) hypertension; Z79.02 Long term (current) use of antithrombotics/antiplatelets; Z79.82 Long term (current) use of aspirin; Z79.899 Other long term (current) drug therapy
CPT/HCPCS: 11042

== ENCOUNTER 2021-02-06 10:10 | Outpatient (CLI) | payer MEDICARE, OTHER ==
[2021-02-06] MEDS ORDERED: MUPIROCIN 2% CREAM 15 GM TUBE TP ONE (10:31)
[2021-02-06] MEDS ORDERED: GENTAMICIN 0.1% CREAM 15 GM TUBE ONE (10:32)
[2021-02-06] MEDS ORDERED: UREA 10% -AHA 4% CREAM 57 GM TUBE ONE (10:32)
== END 2021-02-06 23:59 | disposition home health service (06) ==
LOC: WOU 10:10
PROVIDERS: ATTEND Podiatrist Foot & Ankle Surgery
DX: E11.621 Type 2 diabetes mellitus with foot ulcer (principal); L97.412 Non-pressure chronic ulcer of right heel and midfoot with fat layer exposed; I87.8 Other specified disorders of veins; E11.51 Type 2 diabetes mellitus with diabetic peripheral angiopathy without gangrene; I10 Essential (primary) hypertension; Z79.02 Long term (current) use of antithrombotics/antiplatelets; Z79.899 Other long term (current) drug therapy
CPT/HCPCS: 11042

== ENCOUNTER 2021-02-13 11:00 | Outpatient (CLI) | payer MEDICARE, OTHER ==
[2021-02-13] MEDS ORDERED: LIDOCAINE SOLN 4% 50 ML BOTTLE ONE (11:24)
[2021-02-13] MEDS ORDERED: CADEXOMER IODINE UD 5 GM TUBE ONE (11:32)
== END 2021-02-13 23:59 | disposition home health service (06) ==
LOC: WOU 11:00
PROVIDERS: ATTEND Podiatrist Foot & Ankle Surgery
DX: E11.621 Type 2 diabetes mellitus with foot ulcer (principal); L97.412 Non-pressure chronic ulcer of right heel and midfoot with fat layer exposed; E11.65 Type 2 diabetes mellitus with hyperglycemia; E11.51 Type 2 diabetes mellitus with diabetic peripheral angiopathy without gangrene; M25.571 Pain in right ankle and joints of right foot; Z79.02 Long term (current) use of antithrombotics/antiplatelets; Z79.82 Long term (current) use of aspirin
CPT/HCPCS: 11042

== ENCOUNTER 2021-02-20 10:55 | Outpatient (CLI) | payer MEDICARE, OTHER ==
[2021-02-20] MEDS ORDERED: CADEXOMER IODINE UD 5 GM TUBE ONE (11:18)
== END 2021-02-20 23:59 | disposition home health service (06) ==
LOC: WOU 10:55
PROVIDERS: ATTEND Podiatrist Foot & Ankle Surgery
DX: E11.621 Type 2 diabetes mellitus with foot ulcer (principal); L97.412 Non-pressure chronic ulcer of right heel and midfoot with fat layer exposed; E11.65 Type 2 diabetes mellitus with hyperglycemia; E11.51 Type 2 diabetes mellitus with diabetic peripheral angiopathy without gangrene; M79.672 Pain in left foot; M25.571 Pain in right ankle and joints of right foot; R60.0 Localized edema; Z79.02 Long term (current) use of antithrombotics/antiplatelets; Z79.82 Long term (current) use of aspirin
CPT/HCPCS: 11042

== ENCOUNTER 2021-02-27 10:45 | Outpatient (CLI) | payer MEDICARE, OTHER | END 2021-02-27 23:59 | disposition home health service (06) | LOC: WOU 10:45 | PROVIDERS: ATTEND Podiatrist Foot & Ankle Surgery | DX: E11.621 Type 2 diabetes mellitus with foot ulcer (principal); L97.412 Non-pressure chronic ulcer of right heel and midfoot with fat layer exposed; E11.65 Type 2 diabetes mellitus with hyperglycemia; E11.51 Type 2 diabetes mellitus with diabetic peripheral angiopathy without gangrene; M25.571 Pain in right ankle and joints of right foot; R60.0 Localized edema; Z79.02 Long term (current) use of antithrombotics/antiplatelets; Z79.82 Long term (current) use of aspirin | CPT/HCPCS: 11042 ==

== ENCOUNTER 2021-03-06 13:10 | Outpatient (CLI) | payer MEDICARE, OTHER | END 2021-03-06 23:59 | disposition home health service (06) | LOC: WOU 13:10 | PROVIDERS: ATTEND Podiatrist Foot & Ankle Surgery | DX: E11.621 Type 2 diabetes mellitus with foot ulcer (principal); L97.412 Non-pressure chronic ulcer of right heel and midfoot with fat layer exposed; E11.51 Type 2 diabetes mellitus with diabetic peripheral angiopathy without gangrene; E11.65 Type 2 diabetes mellitus with hyperglycemia; R60.0 Localized edema; M79.672 Pain in left foot; M25.571 Pain in right ankle and joints of right foot; I10 Essential (primary) hypertension; Z79.02 Long term (current) use of antithrombotics/antiplatelets; Z79.82 Long term (current) use of aspirin | CPT/HCPCS: 11042 ==

== ENCOUNTER 2021-03-16 09:45 | Outpatient (CLI) | payer MEDICARE, OTHER ==
[2021-03-16] MEDS ORDERED: LIDOCAINE SOLN 4% 50 ML BOTTLE ONE (10:10)
[2021-03-16] MEDS ORDERED: CADEXOMER IODINE UD 5 GM TUBE ONE (10:36)
== END 2021-03-16 23:59 | disposition home health service (06) ==
LOC: WOU 09:45
PROVIDERS: ATTEND Podiatrist Foot & Ankle Surgery
DX: E11.621 Type 2 diabetes mellitus with foot ulcer (principal); L97.412 Non-pressure chronic ulcer of right heel and midfoot with fat layer exposed; E11.51 Type 2 diabetes mellitus with diabetic peripheral angiopathy without gangrene; E11.65 Type 2 diabetes mellitus with hyperglycemia; M25.571 Pain in right ankle and joints of right foot; R60.0 Localized edema; M79.672 Pain in left foot; Z79.82 Long term (current) use of aspirin; Z79.02 Long term (current) use of antithrombotics/antiplatelets
CPT/HCPCS: 11042

== ENCOUNTER 2021-03-23 09:50 | Outpatient (CLI) | payer MEDICARE, OTHER ==
[2021-03-23] MEDS ORDERED: CADEXOMER IODINE UD 5 GM TUBE ONE (10:22)
== END 2021-03-23 23:59 | disposition home health service (06) ==
LOC: WOU 09:50
PROVIDERS: ATTEND Podiatrist Foot & Ankle Surgery
DX: E11.621 Type 2 diabetes mellitus with foot ulcer (principal); L97.412 Non-pressure chronic ulcer of right heel and midfoot with fat layer exposed; E11.65 Type 2 diabetes mellitus with hyperglycemia; E11.51 Type 2 diabetes mellitus with diabetic peripheral angiopathy without gangrene; R60.0 Localized edema; M25.571 Pain in right ankle and joints of right foot; I10 Essential (primary) hypertension; Z79.01 Long term (current) use of anticoagulants; Z79.82 Long term (current) use of aspirin
CPT/HCPCS: 11043

== ENCOUNTER 2021-04-03 10:20 | Outpatient (CLI) | payer MEDICARE, OTHER | END 2021-04-03 23:59 | disposition home health service (06) | LOC: WOU 10:20 | PROVIDERS: ATTEND Podiatrist Foot & Ankle Surgery | DX: E11.621 Type 2 diabetes mellitus with foot ulcer (principal); L97.412 Non-pressure chronic ulcer of right heel and midfoot with fat layer exposed; E11.65 Type 2 diabetes mellitus with hyperglycemia; E11.51 Type 2 diabetes mellitus with diabetic peripheral angiopathy without gangrene; M25.571 Pain in right ankle and joints of right foot; R60.0 Localized edema; Z79.02 Long term (current) use of antithrombotics/antiplatelets; Z79.82 Long term (current) use of aspirin | CPT/HCPCS: 11043 ==

== ENCOUNTER 2021-04-25 13:40 | Outpatient (CLI) | payer MEDICARE, OTHER ==
[2021-04-25] MEDS ORDERED: LIDOCAINE SOLN 4% 50 ML BOTTLE ONE (14:24)
== END 2021-04-25 23:59 | disposition home health service (06) ==
LOC: WOU 13:40
PROVIDERS: ATTEND Podiatrist Foot & Ankle Surgery
DX: E11.621 Type 2 diabetes mellitus with foot ulcer (principal); L97.412 Non-pressure chronic ulcer of right heel and midfoot with fat layer exposed; E11.51 Type 2 diabetes mellitus with diabetic peripheral angiopathy without gangrene; Z79.82 Long term (current) use of aspirin; Z79.02 Long term (current) use of antithrombotics/antiplatelets; I10 Essential (primary) hypertension
CPT/HCPCS: 11042

== ENCOUNTER 2021-05-09 13:15 | Outpatient (CLI) | payer MEDICARE, OTHER ==
[~2021-05-09 13:15] MED LIST changes: +LIDOCAINE SOLN 4% 50 ML BOTTLE ONE
== END 2021-05-09 23:59 | disposition home health service (06) ==
LOC: WOU 13:15
PROVIDERS: ATTEND Podiatrist Foot & Ankle Surgery
DX: E11.621 Type 2 diabetes mellitus with foot ulcer (principal); L97.412 Non-pressure chronic ulcer of right heel and midfoot with fat layer exposed; E11.65 Type 2 diabetes mellitus with hyperglycemia; E11.51 Type 2 diabetes mellitus with diabetic peripheral angiopathy without gangrene; M25.571 Pain in right ankle and joints of right foot; R60.0 Localized edema; M79.672 Pain in left foot; Z79.02 Long term (current) use of antithrombotics/antiplatelets; Z79.82 Long term (current) use of aspirin
CPT/HCPCS: 11042

== ENCOUNTER 2021-05-18 11:10 | Outpatient (CLI) | payer MEDICARE, OTHER ==
[~2021-05-18 11:10] MED LIST changes: -LIDOCAINE SOLN 4% 50 ML BOTTLE ONE
[2021-05-18] MEDS ORDERED: LIDOCAINE 2% JEL 5 ML TUBE ONE (11:21)
== END 2021-05-18 23:59 | disposition home health service (06) ==
LOC: WOU 11:10
PROVIDERS: ATTEND Podiatrist Foot & Ankle Surgery
DX: E11.621 Type 2 diabetes mellitus with foot ulcer (principal); L97.412 Non-pressure chronic ulcer of right heel and midfoot with fat layer exposed; E11.65 Type 2 diabetes mellitus with hyperglycemia; E11.51 Type 2 diabetes mellitus with diabetic peripheral angiopathy without gangrene; M25.571 Pain in right ankle and joints of right foot; R60.0 Localized edema; Z79.02 Long term (current) use of antithrombotics/antiplatelets; Z79.82 Long term (current) use of aspirin
CPT/HCPCS: 11042

== ENCOUNTER 2021-05-25 11:45 | Outpatient (CLI) | payer MEDICARE, OTHER | END 2021-05-25 23:59 | disposition home health service (06) | LOC: WOU 11:45 | PROVIDERS: ATTEND Podiatrist Foot & Ankle Surgery | DX: E11.621 Type 2 diabetes mellitus with foot ulcer (principal); L97.412 Non-pressure chronic ulcer of right heel and midfoot with fat layer exposed; E11.65 Type 2 diabetes mellitus with hyperglycemia; E11.51 Type 2 diabetes mellitus with diabetic peripheral angiopathy without gangrene; R60.0 Localized edema; M79.672 Pain in left foot; Z79.82 Long term (current) use of aspirin; Z79.02 Long term (current) use of antithrombotics/antiplatelets | CPT/HCPCS: 11042 ==

== ENCOUNTER 2021-06-06 13:55 | Outpatient (CLI) | payer MEDICARE, OTHER | END 2021-06-06 23:59 | disposition home health service (06) | LOC: WOU 13:55 | PROVIDERS: ATTEND Podiatrist Foot & Ankle Surgery | DX: E11.621 Type 2 diabetes mellitus with foot ulcer (principal); L97.412 Non-pressure chronic ulcer of right heel and midfoot with fat layer exposed; E11.65 Type 2 diabetes mellitus with hyperglycemia; E11.51 Type 2 diabetes mellitus with diabetic peripheral angiopathy without gangrene; M25.571 Pain in right ankle and joints of right foot; M79.672 Pain in left foot; R60.0 Localized edema; Z79.82 Long term (current) use of aspirin; Z79.02 Long term (current) use of antithrombotics/antiplatelets | CPT/HCPCS: 11042 ==

== ENCOUNTER 2021-06-13 13:00 | Outpatient (CLI) | payer MEDICARE, OTHER | END 2021-06-13 23:59 | disposition home health service (06) | LOC: WOU 13:00 | PROVIDERS: ATTEND Podiatrist Foot & Ankle Surgery | DX: E11.621 Type 2 diabetes mellitus with foot ulcer (principal); L97.412 Non-pressure chronic ulcer of right heel and midfoot with fat layer exposed; E11.65 Type 2 diabetes mellitus with hyperglycemia; E11.51 Type 2 diabetes mellitus with diabetic peripheral angiopathy without gangrene; M25.571 Pain in right ankle and joints of right foot; R60.0 Localized edema; Z79.82 Long term (current) use of aspirin; Z79.02 Long term (current) use of antithrombotics/antiplatelets | CPT/HCPCS: 11042 ==

== ENCOUNTER 2021-06-20 12:50 | Outpatient (CLI) | payer MEDICARE, OTHER | END 2021-06-20 23:59 | disposition home health service (06) | LOC: WOU 12:50 | PROVIDERS: ATTEND Podiatrist Foot & Ankle Surgery | DX: E11.621 Type 2 diabetes mellitus with foot ulcer (principal); L97.412 Non-pressure chronic ulcer of right heel and midfoot with fat layer exposed; E11.51 Type 2 diabetes mellitus with diabetic peripheral angiopathy without gangrene; E11.65 Type 2 diabetes mellitus with hyperglycemia; M25.571 Pain in right ankle and joints of right foot; R60.0 Localized edema; Z79.82 Long term (current) use of aspirin; Z79.02 Long term (current) use of antithrombotics/antiplatelets | CPT/HCPCS: 11042 ==

== ENCOUNTER 2021-06-27 13:00 | Outpatient (CLI) | payer MEDICARE, OTHER | END 2021-06-27 23:59 | disposition home health service (06) | LOC: WOU 13:00 | PROVIDERS: ATTEND Podiatrist Foot & Ankle Surgery | DX: E11.621 Type 2 diabetes mellitus with foot ulcer (principal); L97.412 Non-pressure chronic ulcer of right heel and midfoot with fat layer exposed; E11.65 Type 2 diabetes mellitus with hyperglycemia; E11.51 Type 2 diabetes mellitus with diabetic peripheral angiopathy without gangrene; M79.672 Pain in left foot; M25.571 Pain in right ankle and joints of right foot; R60.0 Localized edema; Z79.02 Long term (current) use of antithrombotics/antiplatelets; Z79.82 Long term (current) use of aspirin | CPT/HCPCS: 11042; A6197 ==

== ENCOUNTER 2021-07-06 11:40 | Outpatient (CLI) | payer MEDICARE, OTHER ==
[2021-07-06] MEDS ORDERED: LIDOCAINE SOLN 4% 50 ML BOTTLE ONE (11:46)
== END 2021-07-06 23:59 | disposition home health service (06) ==
LOC: WOU 11:40
PROVIDERS: ATTEND Podiatrist Foot & Ankle Surgery
DX: E11.621 Type 2 diabetes mellitus with foot ulcer (principal); L97.412 Non-pressure chronic ulcer of right heel and midfoot with fat layer exposed; E11.65 Type 2 diabetes mellitus with hyperglycemia; E11.51 Type 2 diabetes mellitus with diabetic peripheral angiopathy without gangrene; M25.571 Pain in right ankle and joints of right foot; R60.0 Localized edema; Z79.02 Long term (current) use of antithrombotics/antiplatelets; Z79.82 Long term (current) use of aspirin
CPT/HCPCS: 11042

== ENCOUNTER 2021-07-13 11:33 | Outpatient (CLI) | payer MEDICARE, OTHER ==
[2021-07-13] MEDS ORDERED: LIDOCAINE 2% JEL 5 ML TUBE ONE (11:38)
== END 2021-07-13 23:59 | disposition home health service (06) ==
LOC: WOU 11:33
PROVIDERS: ATTEND Podiatrist Foot & Ankle Surgery
DX: E11.621 Type 2 diabetes mellitus with foot ulcer (principal); L97.412 Non-pressure chronic ulcer of right heel and midfoot with fat layer exposed; E11.65 Type 2 diabetes mellitus with hyperglycemia; B35.1 Tinea unguium; M79.672 Pain in left foot; Z79.02 Long term (current) use of antithrombotics/antiplatelets; Z79.82 Long term (current) use of aspirin
CPT/HCPCS: 11042

== ENCOUNTER 2021-07-20 11:35 | Outpatient (CLI) | payer MEDICARE, OTHER ==
[2021-07-20] MEDS ORDERED: LIDOCAINE 2% JEL 5 ML TUBE ONE (11:41)
== END 2021-07-20 23:59 | disposition home health service (06) ==
LOC: WOU 11:35
PROVIDERS: ATTEND Podiatrist Foot & Ankle Surgery
DX: E11.621 Type 2 diabetes mellitus with foot ulcer (principal); L97.412 Non-pressure chronic ulcer of right heel and midfoot with fat layer exposed; E11.51 Type 2 diabetes mellitus with diabetic peripheral angiopathy without gangrene; E11.65 Type 2 diabetes mellitus with hyperglycemia; M25.571 Pain in right ankle and joints of right foot; R60.0 Localized edema; M79.672 Pain in left foot; Z79.02 Long term (current) use of antithrombotics/antiplatelets; Z79.82 Long term (current) use of aspirin
CPT/HCPCS: 11042; A6197

== ENCOUNTER 2021-07-27 10:50 | Outpatient (CLI) | payer MEDICARE, OTHER ==
[2021-07-27] MEDS ORDERED: LIDOCAINE 2% JEL 5 ML TUBE ONE (11:13)
== END 2021-07-27 23:59 | disposition home health service (06) ==
LOC: WOU 10:50
PROVIDERS: ATTEND Podiatrist Foot & Ankle Surgery
DX: E11.621 Type 2 diabetes mellitus with foot ulcer (principal); L97.412 Non-pressure chronic ulcer of right heel and midfoot with fat layer exposed; E11.51 Type 2 diabetes mellitus with diabetic peripheral angiopathy without gangrene; E11.65 Type 2 diabetes mellitus with hyperglycemia; M25.571 Pain in right ankle and joints of right foot; M79.672 Pain in left foot; R60.0 Localized edema
CPT/HCPCS: 11042

== ENCOUNTER 2021-08-03 11:10 | Outpatient (CLI) | payer MEDICARE, OTHER | END 2021-08-03 23:59 | disposition home health service (06) | LOC: WOU 11:10 | PROVIDERS: ATTEND Podiatrist Foot & Ankle Surgery | DX: E11.51 Type 2 diabetes mellitus with diabetic peripheral angiopathy without gangrene (principal); E11.65 Type 2 diabetes mellitus with hyperglycemia; L84 Corns and callosities; R60.0 Localized edema; M25.571 Pain in right ankle and joints of right foot; Z79.02 Long term (current) use of antithrombotics/antiplatelets; Z79.82 Long term (current) use of aspirin | CPT/HCPCS: G0463 ==

== ENCOUNTER → 2021-08-17 | Outpatient (CLI) | payer MEDICARE, OTHER | END | disposition home health service (06) | LOC: WOU 11:00 | PROVIDERS: ATTEND Podiatrist Foot & Ankle Surgery | DX: Z09 Encounter for follow-up examination after completed treatment for conditions other than malignant neoplasm (principal); L84 Corns and callosities; E11.51 Type 2 diabetes mellitus with diabetic peripheral angiopathy without gangrene; E11.65 Type 2 diabetes mellitus with hyperglycemia; M25.571 Pain in right ankle and joints of right foot; Z86.31 Personal history of diabetic foot ulcer; Z79.02 Long term (current) use of antithrombotics/antiplatelets; Z79.82 Long term (current) use of aspirin | CPT/HCPCS: G0463 ==

== ENCOUNTER → 2021-09-14 | Outpatient (CLI) | payer MEDICARE, OTHER ==
[~2021-09-14] MED LIST changes: +CADEXOMER IODINE UD 5 GM TUBE ONE; +LIDOCAINE SOLN 4% 50 ML BOTTLE ONE
== END | disposition home health service (06) ==
LOC: WOU 10:50
PROVIDERS: ATTEND Podiatrist Foot & Ankle Surgery
DX: E11.621 Type 2 diabetes mellitus with foot ulcer (principal); L97.412 Non-pressure chronic ulcer of right heel and midfoot with fat layer exposed; E11.65 Type 2 diabetes mellitus with hyperglycemia; E11.51 Type 2 diabetes mellitus with diabetic peripheral angiopathy without gangrene; M25.571 Pain in right ankle and joints of right foot; L84 Corns and callosities; M79.672 Pain in left foot; R60.0 Localized edema; Z79.82 Long term (current) use of aspirin; Z79.02 Long term (current) use of antithrombotics/antiplatelets
CPT/HCPCS: 11042; 87070-TC; 87075-TC; 87186-TC

== ENCOUNTER 2021-09-21 15:30 | Outpatient (CLI) | payer MEDICARE, OTHER ==
[~2021-09-21 15:30] MED LIST changes: -CADEXOMER IODINE UD 5 GM TUBE ONE; -LIDOCAINE SOLN 4% 50 ML BOTTLE ONE
== END 2021-09-21 23:59 | disposition home health service (06) ==
LOC: WOU 15:30
PROVIDERS: ATTEND Podiatrist Foot & Ankle Surgery
DX: L03.115 Cellulitis of right lower limb (principal); E11.621 Type 2 diabetes mellitus with foot ulcer; L97.412 Non-pressure chronic ulcer of right heel and midfoot with fat layer exposed; E11.65 Type 2 diabetes mellitus with hyperglycemia; M25.571 Pain in right ankle and joints of right foot; R60.0 Localized edema; Z79.02 Long term (current) use of antithrombotics/antiplatelets; Z79.82 Long term (current) use of aspirin
CPT/HCPCS: G0463

== ENCOUNTER 2021-09-25 10:30 | Outpatient (CLI) | payer MEDICARE, OTHER ==
[2021-09-25] MEDS ORDERED: GENTAMICIN 0.1% CREAM 15 GM TUBE ONE (10:53)
[2021-09-25] MEDS ORDERED: LIDOCAINE SOLN 4% 50 ML BOTTLE ONE (10:53)
[2021-09-25] MEDS ORDERED: LIDOCAINE HCL/MPF 1% 30 ML VIAL IJ ONE (11:04)
== END 2021-09-25 23:59 | disposition home health service (06) ==
LOC: WOU 10:30
PROVIDERS: ATTEND Podiatrist Foot & Ankle Surgery
DX: E11.621 Type 2 diabetes mellitus with foot ulcer (principal); L97.413 Non-pressure chronic ulcer of right heel and midfoot with necrosis of muscle; E11.65 Type 2 diabetes mellitus with hyperglycemia; E11.51 Type 2 diabetes mellitus with diabetic peripheral angiopathy without gangrene; Z79.02 Long term (current) use of antithrombotics/antiplatelets; L02.611 Cutaneous abscess of right foot; M25.571 Pain in right ankle and joints of right foot; M79.672 Pain in left foot; Z98.2 Presence of cerebrospinal fluid drainage device
CPT/HCPCS: 11043; J3490

== ENCOUNTER 2021-09-28 11:00 | Outpatient (CLI) | payer MEDICARE, OTHER ==
[2021-09-28] MEDS ORDERED: LIDOCAINE SOLN 4% 50 ML BOTTLE ONE (11:12)
[2021-09-28] MEDS ORDERED: GENTAMICIN 0.1% CREAM 15 GM TUBE ONE (11:41)
== END 2021-09-28 23:59 | disposition home health service (06) ==
LOC: WOU 11:00
PROVIDERS: ATTEND Podiatrist Foot & Ankle Surgery
DX: E11.621 Type 2 diabetes mellitus with foot ulcer (principal); L97.412 Non-pressure chronic ulcer of right heel and midfoot with fat layer exposed; E11.52 Type 2 diabetes mellitus with diabetic peripheral angiopathy with gangrene; E11.65 Type 2 diabetes mellitus with hyperglycemia; R60.0 Localized edema; Z79.82 Long term (current) use of aspirin; Z79.02 Long term (current) use of antithrombotics/antiplatelets
CPT/HCPCS: 11042

== ENCOUNTER 2021-10-05 11:00 | Outpatient (CLI) | payer MEDICARE, OTHER ==
[2021-10-05] MEDS ORDERED: GENTAMICIN 0.1% CREAM 15 GM TUBE ONE (11:45)
[2021-10-05] MEDS ORDERED: LIDOCAINE 2% JEL 5 ML TUBE ONE (11:45)
[2021-10-05] MEDS ORDERED: DAKINS HALF STRENGTH (0.25%) 480 ML BOTTLE ONE (11:48)
== END 2021-10-05 23:59 | disposition home health service (06) ==
LOC: WOU 11:00
PROVIDERS: ATTEND Podiatrist Foot & Ankle Surgery
DX: E11.621 Type 2 diabetes mellitus with foot ulcer (principal); L97.412 Non-pressure chronic ulcer of right heel and midfoot with fat layer exposed; E11.65 Type 2 diabetes mellitus with hyperglycemia; E11.51 Type 2 diabetes mellitus with diabetic peripheral angiopathy without gangrene; R60.0 Localized edema; Z79.02 Long term (current) use of antithrombotics/antiplatelets; Z79.82 Long term (current) use of aspirin
CPT/HCPCS: 11042; 87070-TC; 87075-TC; 87186-TC

== ENCOUNTER 2021-10-12 11:00 | Outpatient (CLI) | payer MEDICARE, OTHER ==
[2021-10-12] MEDS ORDERED: GENTAMICIN 0.1% CREAM 15 GM TUBE ONE (12:10)
== END 2021-10-12 23:59 | disposition home health service (06) ==
LOC: WOU 11:00
PROVIDERS: ATTEND Podiatrist Foot & Ankle Surgery
DX: E11.621 Type 2 diabetes mellitus with foot ulcer (principal); L97.412 Non-pressure chronic ulcer of right heel and midfoot with fat layer exposed; E11.65 Type 2 diabetes mellitus with hyperglycemia; E11.51 Type 2 diabetes mellitus with diabetic peripheral angiopathy without gangrene; M25.571 Pain in right ankle and joints of right foot; R60.0 Localized edema; Z79.82 Long term (current) use of aspirin; Z79.02 Long term (current) use of antithrombotics/antiplatelets
CPT/HCPCS: 11042; 87070-TC; 87075-TC; 87186-TC

== ENCOUNTER 2021-10-19 11:32 | Outpatient (CLI) | payer MEDICARE, OTHER ==
[2021-10-19] MEDS ORDERED: GENTAMICIN 0.1% CREAM 15 GM TUBE ONE (12:25)
== END 2021-10-19 23:59 | disposition home health service (06) ==
LOC: WOU 11:32
PROVIDERS: ATTEND Podiatrist Foot & Ankle Surgery
DX: E11.621 Type 2 diabetes mellitus with foot ulcer (principal); L97.412 Non-pressure chronic ulcer of right heel and midfoot with fat layer exposed; E11.51 Type 2 diabetes mellitus with diabetic peripheral angiopathy without gangrene; E11.65 Type 2 diabetes mellitus with hyperglycemia; R60.0 Localized edema; Z79.02 Long term (current) use of antithrombotics/antiplatelets; Z79.82 Long term (current) use of aspirin; M25.571 Pain in right ankle and joints of right foot
CPT/HCPCS: 11042

== ENCOUNTER 2021-11-02 09:52 | Outpatient (CLI) | payer MEDICARE, OTHER | END 2021-11-02 23:59 | disposition home health service (06) | LOC: WOU 09:52 | PROVIDERS: ATTEND Podiatrist Foot & Ankle Surgery | DX: E11.51 Type 2 diabetes mellitus with diabetic peripheral angiopathy without gangrene (principal); E11.65 Type 2 diabetes mellitus with hyperglycemia; L84 Corns and callosities; R60.0 Localized edema; Z86.31 Personal history of diabetic foot ulcer; Z79.02 Long term (current) use of antithrombotics/antiplatelets; Z79.82 Long term (current) use of aspirin | CPT/HCPCS: G0463 ==